=== PATIENT | female | born 1995 | race Caucasian/White ===

== ENCOUNTER 2016-09-10 16:37 | Emergency (ER) | payer OTHER, MEDICAID ==
[~2016-09-10] VITALS: Ht 185.4 cm; Wt 106.6 kg
[~2016-09-10 16:37] MED LIST: DOCU100C37 PO; HYDR-3812 PO; IBUP-1773 PO; PNV91TAB3 PO
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
[2016-09-10 19:31] VITALS: BP 0/0
== END 2016-09-10 19:31 | disposition home or self-care (01) ==
LOC: EDUNIT# 16:37 → ER 16:40
DX: S16.1XXA Strain of muscle, fascia and tendon at neck level, initial encounter (principal); S39.012A Strain of muscle, fascia and tendon of lower back, initial encounter; F17.210 Nicotine dependence, cigarettes, uncomplicated; V48.6XXA Car passenger injured in noncollision transport accident in traffic accident, initial encounter; Y92.410 Unspecified street and highway as the place of occurrence of the external cause; Y99.8 Other external cause status
CPT/HCPCS: 70450; 72072; 72100; 72125; 84703

== ENCOUNTER → 2016-10-03 | Outpatient (CLI) | payer MEDICAID ==
--- OUTSIDE RECORDS SUMMARY | 2016-10-03 16:21 | XMS REPORT | Continuity of Care Document ---
Author Author [facility] Organization [facility] Address Unknown Phone Unavailable Care Team Providers Care Foot Specialist Name Role Phone NO, LOCAL PHYSICIAN PCP Unavailable Insurance Providers Payer Name Policy Number [facility]scriber Name [facility] [id number] Svetlana Ellis 18 Self / Same As Patient Advance Directives Directive Response Recorded Date/Time Advance Directives No 09/10/16 5:12pm Health Care Power of Air Twist Operator No 09/10/16 5:12pm Organ Donor Yes 09/10/16 5:12pm Resuscitation Status Full Code 09/10/16 5:12pm Chief Complaint and Reason for Visit Chief Complaint Back Problems Reason for Visit Muscle strain Problems Active Problems Medical Problem Onset Date Status Abdominal pain Unknown Acute Muscle strain Unknown Acute Unknown Acute Medications Current Home Medications Medication Dose Units Route Directions Days/Qty Instructions Start Date Pnv95/Ferrous Fumarate/Fa 1 Each 1 Each Oral Daily 11/09/15 Ibuprofen 600 Mg 600 Mg Oral Every 6 Hours 60 11/11/15 Hydrocodone/Acetaminophen 1 Each 1-2 Tab Oral Every 4HRS as needed for Pain 50 11/11/15 Docusate Sodium 100 Mg 100 Mg Oral Twice A Day as needed for Constipation 40 11/11/15 Social History Social History Problem Response Recorded Date/Time Alcohol Use Denies Use 11/09/2015 11:28am Recreational Drug Use No 11/09/2015 11:28am Recent Foreign Travel No 09/10/2016 5:12pm Recent Infectious Disease Exposure No 09/10/2016 5:12pm Hospitalization with Isolation Denies 09/10/2016 5:12pm Sexually Transmitted Disease No 09/10/2016 5:12pm Smoking Status Current Everyday Smoker 09/10/2016 5:12pm Do you dip or chew tobacco? No 11/09/2015 12:06pm Type Used Cigarettes 09/10/2016 5:12pm Recent Hopitalizations No 09/10/2016 5:12pm Sexually Transmitted Disease No 09/10/2016 5:12pm Hospitalization with Isolation Denies 09/10/2016 5:12pm Query Response Start Date Stop Date Smoking Status Current Everyday Smoker 05/11/2015 Hospital Discharge Instructions No hospital discharge instructions. Plan of Care Discharge Date 09/10/16 7:31pm Disposition 01 HOME, SELF-CARE Condition at Discharge Stable Instructions/Education Provided Muscle Strain (DC) Prescriptions See Medication Section Referrals NO,LOCAL PHYSICIAN - Primary Care Physician Additional Instructions/Education 1. Return to ER for any concerns 2. Tylenol and Motrin and muscle relaxers directed 3. All discharge instructions reviewed with patient and/or family. Voiced understanding. Functional Status No functional status results. Allergies, Adverse Reactions, Alerts No known allergies. Immunizations No immunization records. Vital Signs Acute Vital Signs Vital Response Date/Time Temperature (Fahrenheit) 95.5 degrees F (97.6 - 99.5) 09/10/2016 5:12pm Temperature (Calculated Celsius) 35.17341 degrees C (36.4 - 37.5) 09/10/2016 5:12pm Temperature Source Temporal 09/10/2016 5:12pm Pulse Rate (adult) 99 bpm (60 - 90) 09/10/2016 5:12pm Respiratory Rate 20 bpm (12 - 24) 09/10/2016 5:12pm O2 Sat by Pulse Oximetry 99 % (88 - 100) 09/10/2016 5:12pm Blood Pressure 129/89 mm Hg 09/10/2016 5:12pm Blood Pressure Mean 102 mm Hg 09/10/2016 5:12pm Pain Numeric Pain Scale 8 09/10/2016 5:12pm Height (Feet) 6 feet 09/10/2016 5:12pm Height (Inches) 1 inches 09/10/2016 5:12pm Height (Calculated Centimeters) 185.869189 cm 09/10/2016 5:12pm Weight (Pounds) 235 pounds 09/10/2016 5:12pm Weight (Calculated Kilograms) 106.086108 kilograms 09/10/2016 5:12pm Capillary Refill Capillary Refill Less Than 3 Seconds 09/10/2016 5:12pm Height 6 ft 1 in Weight 235 lb Body Mass Index 31.0 kg/m^2 Results No known relevant diagnostic tests, laboratory data and/or discharge summary. Procedures No known history of procedures. Encounters Encounter Location Arrival/Admit Date Discharge/Depart Date Attending Provider Departed Emergency Room [facility] 09/10/16 4:40pm 09/10 7:31pm HERI AGUSTIN APRN Recent Diagnosis
[2016-10-03 17:46] LABS: THYROID STIMULATING HORMONE 1.36 UIU/ML (0.35-4.94)
== END ==
LOC: LAB 16:17
PROVIDERS: ATTEND Family Medicine
DX: R53.83 Other fatigue (principal)
CPT/HCPCS: 36415; 84439; 84443

== ENCOUNTER 2016-10-27 19:37 | Outpatient (CLI) | payer MEDICAID ==
--- OUTSIDE RECORDS SUMMARY | 2016-10-27 19:39 | XMS REPORT | Continuity of Care Document ---
Author Author [facility] Organization [facility] Address Unknown Phone Unavailable Care Team Providers Care Wheel Roller Name Role Phone NO, LOCAL PHYSICIAN PCP Unavailable Insurance Providers Payer Name Policy Number Subscriber Name [facility] [id number] Svetlana Ellis 18 Self / Same As Patient Advance Directives Directive Response Recorded Date/Time Advance Directives No 09/10/16 5:12pm Health Care Power of Director Power No 09/10/16 5:12pm Organ Donor Yes 09/10/16 [...] - 99.5) 09/10/2016 5:12pm Temperature (Calculated Celsius) 35.70795 degrees C (36.4 - 37.5) 09/10/2016 5:12pm [...] 1 inches 09/10/2016 5:12pm Height (Calculated Centimeters) 185.687994 cm 09/10/2016 5:12pm Weight (Pounds) 235 pounds 09/10/2016 5:12pm Weight (Calculated Kilograms) 106.330808 kilograms 09/10/2016 5:12pm Capillary Refill Capillary Refill Less Than 3 Seconds 09/10/2016 5:12pm Height 6 ft 1 in Weight 235 lb Body Mass Index 31.0 kg/m^2 Results No known relevant diagnostic tests, laboratory data and/or discharge summary. Procedures No known history of procedures. Encounters Encounter Location Arrival/Admit Date Discharge/Depart Date Attending Provider Departed Emergency Room [facility] 09/10/16 4:40pm 09/10 7:31pm HERI AGUSTIN APRN Recent Diagnosis
== END 2016-10-28 06:50 | disposition home or self-care (01) ==
LOC: SLEEP 19:37
PROVIDERS: ATTEND Family Medicine
DX: G47.33 Obstructive sleep apnea (adult) (pediatric) (principal); I10 Essential (primary) hypertension
CPT/HCPCS: 95810

== ENCOUNTER 2016-12-13 08:35 | Outpatient (RCR) | payer MEDICAID | END 2017-01-03 08:54 | disposition home or self-care (01) | PROVIDERS: ATTEND Family Medicine | DX: M54.5 Low back pain (principal) ==

== ENCOUNTER 2017-08-02 02:39 | Observation (INO) | payer BC, MEDICAID ==
[~2017-08-02] VITALS: Ht 182.9 cm; Wt 123.8 kg
[2017-08-02] MEDS ORDERED: NS IV 1000 ML 1,000 ML IV STA (03:05)
[2017-08-02 03:13] LABS: BASOPHILS % (AUTO) 0 % (0-10); EOSINOPHILS % (AUTO) 0 % (0-10); LYMPHOCYTES # (AUTO) 1.8 X 10^3 (1.0-4.0); LYMPHOCYTES % (AUTO) 12 % (12-44); MEAN CORPUSCULAR HEMOGLOBIN 29 PG (25-34); MEAN CORPUSCULAR HGB CONC 34 G/DL (32-36); MEAN CORPUSCULAR VOLUME 85 FL (80-99); MEAN PLATELET VOLUME 11.2 FL (7.4-10.4); MONOCYTES # (AUTO) 1.2 X 10^3 (0.0-1.0); MONOCYTES % (AUTO) 8 % (0-12); NEUTROPHILS # (AUTO) 12.6 X 10^3 (1.8-7.8); NEUTROPHILS % (AUTO) 80 % (42-75); PLATELET COUNT 227 10^3/uL (130-400); RED BLOOD COUNT 4.98 10^6/uL (4.35-5.85); RED CELL DISTRIBUTION WIDTH 13.1 % (10.0-14.5); WHITE BLOOD COUNT 15.7 10^3/uL (4.3-11.0)
[2017-08-02 03:15] LABS: BILIRUBIN,URINE NEGATIVE (NEGATIVE); KETONES,URINE 3+ (NEGATIVE); LEUKOCYTE ESTERASE ,URINE 2+ (NEGATIVE); NITRITE,URINE NEGATIVE (NEGATIVE); PH,URINE 6 (5-9); PROTEIN,URINE 1+ (NEGATIVE); UROBILINOGEN,URINE 1 MG/DL (NORMAL)
[2017-08-02] MEDS ORDERED: ONDANSETRON 4 MG/2 ML (SDV) Z0FRAN IVP ONE ×2 (03:15→05:30)
--- NOTE | 2017-08-02 03:28 | ED GI ---
General Chief Complaint: Abdominal/GI Problems Stated Complaint: DIARRHEA,VOMITING,NAUSEA Nursing Triage Note: PT STATES SHE STARTED TO FEEL NASEOUS AND BEGAN VOMITING AND HAVIND DIARRHEA AROUND 2100 THIS EVENING. ALSO C/O ABD CRAMPING. PT IS ALSO 14 WKS . Sepsis Screen: No Definite Risk Source of Information: Patient Exam Limitations: No Limitations History of Present Illness Time Seen By Provider: 03:20 Initial Comments Here with report of nausea, vomiting, diarrhea and abdominal cramping that started about 9 p.m. tonight. 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 After going home she had several more episodes of nonbloody diarrhea and vomiting and then had the abdominal cramping. She is concerned about dehydration and about the cramping. Denies vaginal bleeding. Timing/Duration: 4-6 Hours Severity/Quality: Moderate Location: Generalized Abdomen Radiation: No Radiation Activities at Onset: None Modifying Factors: Improves With Defecating, Worsens With Eating, Improves With Vomiting Associated Symptoms: Back Pain, No Fever/Chills, Fatigue, Nausea/Vomiting, No Shortness of Air, No Weakness Allergies and Home Medications Allergies Coded Allergies: No Known Drug Allergies (Unverified , 05/22/15) Home Medications Docusate Sodium 100 Mg Capsule, 100 MG PO BID PRN for CONSTIPATION, #40 Prescribed by: ALON BANKS on 11/11/15 0944 Hydrocodone/Acetaminophen 1 Each Tablet, 1-2 TAB PO Q4H PRN for PAIN, #50 Prescribed by: ALON BANKS on 11/11/15 0944 Ibuprofen 600 Mg Tablet, 600 MG PO Q6H, #60 Prescribed by: ALON BANKS on 11/11/15 0944 Ondansetron 4 Mg Tab.rapdis, 4 MG PO Q6H PRN for NAUSEA/VOMITING, #8 Ref 0 Prescribed by: BINDU SHAW on 08/02/17 0449 Pnv95/Ferrous Fumarate/FA 1 Each Tablet, 1 EACH PO DAILY, (Reported) Review of Systems Constitutional: see HPI, No chills, No fever EENTM: No Symptoms Reported Respiratory: No Symptoms Reported Cardiovascular: No Symptoms Reported Gastrointestinal: See HPI, Abdominal Pain, Diarrhea, Nausea, Vomiting Genitourinary: No Symptoms Reported Musculoskeletal: no symptoms reported Skin: no symptoms reported Psychiatric/Neurological: No Symptoms Reported Past Flmjclm-Egqcye-Dpijgu Hx Patient Social History Alcohol Use: Denies Use Recreational Drug Use: No Smoking Status: Former Smoker Type Used: Cigarettes Recent Foreign Travel: No Contact w/Someone Who Travel: No Recent Infectious Disease Expo: No Recent Hopitalizations: No Immunizations Up To Date Tetanus Booster (TDap): Less than 5yrs Date of Influenza Vaccine: Jun 19, 2015 Surgeries History of Surgeries: Yes Surgeries: Section Respiratory History of Respiratory Disorde: No Cardiovascular History of Cardiac Disorders: No Neurological History of Neurological Disord: No Reproductive System Hx : 2 Hx Para: 1 Hx Reproductive Disorders: No Sexually Transmitted Disease: No Genitourinary History of Genitourinary Disor: Yes Genitourinary Disorders: Kidney Infection, Kidney Stones Reviewed Nursing Assessment Reviewed/Agree w Nursing PMH: Yes Family Medical History Significant Family History: No Pertinent Family Hx Family Medial History: Arthritis 19 MOTHER grandparents Cardiovascular disease grandparents Hypertension grandparents Kidney disease 19 FATHER Myocardial infarction grandparents Respiratory disorder grandparents (lung ca) Physical Exam Vital Signs VS - Last 72 Hours, by Label 08/02/17 02:55 Temp 97.5 Pulse 119 Resp 16 B/P (MAP) 135/81 (99) Capillary Refill : Less Than 3 Seconds General Appearance: WD/WN, no apparent distress HEENT: PERRL/EOMI, pharynx normal Neck: full range of motion, supple Respiratory: lungs clear, normal breath sounds Cardiovascular: regular rate, rhythm, no murmur Gastrointestinal: normal bowel sounds, non tender, soft Extremities: non-tender, normal inspection Back: normal inspection, no CVA tenderness, no vertebral tenderness Neurologic/Psychiatric: alert, oriented x 3 Skin: normal color, warm/dry Progress/Results/Core Measures Results/Orders Lab Results Laboratory Tests Test 08/02/17 03:00 08/02/17 03:07 Range/Units White Blood Count 15.7 H 4.3-11.0 10^3/uL Red Blood Count 4.98 4.35-5.85 10^6/uL Hemoglobin 14.5 11.5-16.0 G/DL Hematocrit 42 35-52 % Mean Corpuscular Volume 85 80-99 FL Mean Corpuscular Hemoglobin 29 25-34 PG Mean Corpuscular Hemoglobin Concent 34 32-36 G/DL Red Cell Distribution Width 13.1 10.0-14.5 % Platelet Count 227 130-400 10^3/uL Mean Platelet Volume 11.2 H 7.4-10.4 FL Neutrophils (%) (Auto) 80 H 42-75 % Lymphocytes (%) (Auto) 12 12-44 % Monocytes (%) (Auto) 8 0-12 % Eosinophils (%) (Auto) 0 0-10 % Basophils (%) (Auto) 0 0-10 % Neutrophils # (Auto) 12.6 H 1.8-7.8 X 10^3 Lymphocytes # (Auto) 1.8 1.0-4.0 X 10^3 Monocytes # (Auto) 1.2 H 0.0-1.0 X 10^3 Eosinophils # (Auto) 0.0 0.0-0.3 10^3/uL Basophils # (Auto) 0.0 0.0-0.1 10^3/uL Neutrophils % (Manual) 84 % Lymphocytes % (Manual) 7 % Monocytes % (Manual) 6 % Band Neutrophils 3 % Blood Morphology Comment NORMAL Sodium Level 136 135-145 MMOL/L Potassium Level 3.9 3.6-5.0 MMOL/L Chloride Level 106 98-107 MMOL/L Carbon Dioxide Level 18 L 21-32 MMOL/L Anion Gap 12 5-14 MMOL/L Blood Urea Nitrogen 8 7-18 MG/DL Creatinine 0.64 0.60-1.30 MG/DL Estimat Glomerular Filtration Rate > 60 BUN/Creatinine Ratio 13 Glucose Level 106 H 70-105 MG/DL Calcium Level 9.3 8.5-10.1 MG/DL Total Bilirubin 0.5 0.1-1.0 MG/DL Aspartate Amino Transf (AST/SGOT) 12 5-34 U/L Alanine Aminotransferase (ALT/SGPT) 17 0-55 U/L Alkaline Phosphatase 98 40-136 U/L Total Protein 7.1 6.4-8.2 GM/DL Albumin 3.7 3.2-4.5 GM/DL Urine Color MIRNA H Urine Clarity SLIGHTLY CLOUDY Urine pH 6 5-9 Urine Specific [place] 1.025 H 1.016-1.022 Urine Protein 1+ H NEGATIVE Urine Glucose (UA) NEGATIVE NEGATIVE Urine Ketones 3+ H NEGATIVE Urine Nitrite NEGATIVE NEGATIVE Urine Bilirubin NEGATIVE NEGATIVE Urine Urobilinogen 1 NORMAL MG/DL Urine Leukocyte Esterase 2+ H NEGATIVE Urine RBC (Auto) 2+ H NEGATIVE Urine RBC 2-5 H /HPF Urine WBC 0-2 /HPF Urine Squamous Epithelial Cells 25-50 H /HPF Urine Crystals NONE /LPF Urine Bacteria TRACE /HPF Urine Casts NONE /LPF Urine Mucus MODERATE H /LPF Urine Culture Indicated NO My Orders Orders - BINDU SHAW MD Cbc With Automated Diff (08/02/17 03:05) Comprehensive Metabolic Panel (08/02/17 03:05) Ua Culture If Indicated (08/02/17 03:05) Ondansetron Injection (Zofran Injectio (08/02/17 03:15) Ns Iv 1000 Ml (Sodium Chloride 0.9%) (08/02/17 03:05) Saline Lock/Iv-Start (08/02/17 03:05) Manual Differential (08/02/17 03:00) D5 Ns 1000 Ml Iv Solution (Dextrose 5%/0 (08/02/17 03:53) Acetaminophen Tablet (Tylenol Tablet) (08/02/17 04:44) Rx-Ondansetron Po (Rx-Zofran Po) (08/02/17 04:44) Ondansetron Injection (Zofran Injectio (08/02/17 05:20) Promethazine Injection (Phenergan Injec (08/02/17 05:20) Ondansetron Injection (Zofran Injectio (08/02/17 05:30) Promethazine Injection (Phenergan Injec (08/02/17 05:23) Medications Given in ED Current Medications Medications Dose Ordered Sig/Abdirizak Route Start Time Stop Time Status Last Admin Dose Admin Ondansetron HCl 4 mg ONCE ONCE IVP 08/02/17 03:15 08/02/17 03:16 DC 08/02/17 03:13 4 MG Vital Signs/I&O Vital Sign - Last 12Hours 08/02/17 02:55 Temp 97.5 Pulse 119 Resp 16 B/P (MAP) 135/81 (99) Blood Pressure Mean: 99 Progress Note : Progress Note Seen and evaluated. IV, labs and UA ordered. Normal saline 1 L bolus. Zofran 4 mg IV. I did discuss the case with Dr. Banks and he agrees with the plan. D5NS 1 liter bolus ordered after UA was positive for ketones. 0440: Bedside ultrasound shows positive movement with heart tones of approximately 150 bpm. Approximately 14-3/7 by femur length. Patient does have some back pain. Tylenol 1 g by mouth ordered. Monitor patient. 0530: Patient failed by mouth challenge and is feeling significant nausea and is trying not to vomit. Phenergan 25 mg IV and repeat Zofran done. I did discuss the case with Dr. Banks and he accepts patient for admission, observation status. We will continue hydration. Patient agrees with plan. Departure Communication (Admissions) Time/Spoke to Admitting Phy: 05:25 Impression Impression: Primary Impression: Nausea and vomiting Qualified Codes: R11.2 - Nausea with vomiting, unspecified Additional Impression: Diarrhea Qualified Codes: R19.7 - Diarrhea, unspecified Disposition: ADMITTED INPATIENT Condition: Stable Admissions Decision to Admit Reason: Admit from ER (General) Decision to Admit/Date: Aug 02, 2017 Time/Decision to Admit Time: 05:25 Departure-Patient Inst. Decision time for Depature: 04:46 Referrals: GERARDO COLEMAN MD (PCP/Family) Primary Care Physician Scripts Ondansetron (Ondansetron Odt) 4 Mg Tab.rapdis 4 MG PO Q6H Y for NAUSEA/VOMITING, #8 TAB 0 Refills Prov: BINUD SHAW MD 08/02/17 Work/School Note: Work Release Form Date Seen in the Emergency Department: Aug 02, 2017 Return to Work: Aug 03, 2017 Restrictions: No Restrictions BINDU SHAW MD Aug 02, 2017 03:28
[2017-08-02 03:32] LABS: ALANINE AMINOTRANSFERASE 17 U/L (0-55); ALBUMIN 3.7 GM/DL (3.2-4.5); ANION GAP 12 MMOL/L (5-14); ASPARTATE AMINO TRANSFERASE 12 U/L (5-34); BILIRUBIN,TOTAL 0.5 MG/DL (0.1-1.0); BLOOD UREA NITROGEN 8 MG/DL (7-18); BUN/CREATININE RATIO 13; CALCIUM 9.3 MG/DL (8.5-10.1); CARBON DIOXIDE 18 MMOL/L (21-32); CHLORIDE 106 MMOL/L (98-107); CREATININE SERUM 0.64 MG/DL (0.60-1.30); GFR ESTIMATED > 60; GLUCOSE 106 MG/DL (70-105); POTASSIUM 3.9 MMOL/L (3.6-5.0); SODIUM 136 MMOL/L (135-145); TOTAL PROTEIN 7.1 GM/DL (6.4-8.2)
[2017-08-02 03:39] LABS: SQUAMOUS EPITHELIAL CELL,UR 25-50 /HPF; WBC,URINE 0-2 /HPF
[2017-08-02 03:40] LABS: BAND NEUTROPHILS 3 %; LYMPHOCYTES % (MANUAL) 7 %; NEUTROPHILS % (MANUAL) 84 %
[2017-08-02] MEDS ORDERED: D5 NS 1000 ML IV SOLUTION 1,000 ML IV STA (03:53)
[2017-08-02] MEDS ORDERED: RX-ONDANSETRON 4 MG ODT (ZOFRAN) PPK #4 PO STA (04:44)
[2017-08-02] MEDS ORDERED: ACETAMINOPHEN 500 MG TAB (TYLENOL) PO STA (04:44)
[2017-08-02] MEDS ORDERED: ONDA4TAB11 PO (04:49)
[2017-08-02] MEDS ORDERED: PROMETHAZINE INJ 25 MG/ML (PHENERGAN) AMP IVP STA (05:20)
[2017-08-02] MEDS ORDERED: ONDANSETRON 4 MG/2 ML (SDV) Z0FRAN ONE (05:20)
[2017-08-02] MEDS ORDERED: PROMETHAZINE INJ 25 MG/ML (PHENERGAN) AMP ONE (05:23)
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
[2017-08-02 06:11] VITALS: BP 120/60
[2017-08-02] MEDS ORDERED: PROMETHAZINE INJ 25 MG/ML (PHENERGAN) AMP IVP PRN (06:15)
[2017-08-02] MEDS ORDERED: D5 NS 1000 ML IV SOLUTION 1,000 ML IV SCH (06:15)
[2017-08-02] MEDS ORDERED: ONDANSETRON 4 MG/2 ML (SDV) Z0FRAN IVP PRN (06:15)
--- NOTE | 2017-08-02 09:41 | History & Physical-OB ---
OB - Chief Complaint & HPI Date/Time Date of Admission: Date of Admission: Aug 02, 2017 at 5:30 am Time Seen by Provider: 08:05 Chief Complaint/History Hx : 2 Hx Para: 1 Expected Date of Delivery: Jan 26, 2018 Gestational Age in Weeks: 14 Gestational Age in Days: 5 Other reason for admission: Patient admitted from ER last night due to uncontrolled nausea/vomitting. Started yesterday, patient did not get relief with initial IVF bolus and antiemetics and so was admitted for ongoing fluid hydration and resolution- improvement of symptoms. This AM patient is very tired, and still feeling sick , but no cramping or bleeding. Reports diarrhea that started yesterday as well. History of Labs O neg antibody neg RI RPR NR HBsAg NR HIV NR GC neg Laboratory Tests Test 08/02/17 03:00 08/02/17 03:07 Range/Units White Blood Count 15.7 H 4.3-11.0 10^3/uL Red Blood Count 4.98 4.35-5.85 10^6/uL Hemoglobin 14.5 11.5-16.0 G/DL Hematocrit 42 35-52 % Mean Corpuscular Volume 85 80-99 FL Mean Corpuscular Hemoglobin 29 25-34 PG Mean Corpuscular Hemoglobin Concent 34 32-36 G/DL Red Cell Distribution Width 13.1 10.0-14.5 % Platelet Count 227 130-400 10^3/uL Mean Platelet Volume 11.2 H 7.4-10.4 FL Neutrophils (%) (Auto) 80 H 42-75 % Lymphocytes (%) (Auto) 12 12-44 % Monocytes (%) (Auto) 8 0-12 % Eosinophils (%) (Auto) 0 0-10 % Basophils (%) (Auto) 0 0-10 % Neutrophils # (Auto) 12.6 H 1.8-7.8 X 10^3 Lymphocytes # (Auto) 1.8 1.0-4.0 X 10^3 Monocytes # (Auto) 1.2 H 0.0-1.0 X 10^3 Eosinophils # (Auto) 0.0 0.0-0.3 10^3/uL Basophils # (Auto) 0.0 0.0-0.1 10^3/uL Neutrophils % (Manual) 84 % Lymphocytes % (Manual) 7 % Monocytes % (Manual) 6 % Band Neutrophils 3 % Blood Morphology Comment NORMAL Sodium Level 136 135-145 MMOL/L Potassium Level 3.9 3.6-5.0 MMOL/L Chloride Level 106 98-107 MMOL/L Carbon Dioxide Level 18 L 21-32 MMOL/L Anion Gap 12 5-14 MMOL/L Blood Urea Nitrogen 8 7-18 MG/DL Creatinine 0.64 0.60-1.30 MG/DL Estimat Glomerular Filtration Rate > 60 BUN/Creatinine Ratio 13 Glucose Level 106 H 70-105 MG/DL Calcium Level 9.3 8.5-10.1 MG/DL Total Bilirubin 0.5 0.1-1.0 MG/DL Aspartate Amino Transf (AST/SGOT) 12 5-34 U/L Alanine Aminotransferase (ALT/SGPT) 17 0-55 U/L Alkaline Phosphatase 98 40-136 U/L Total Protein 7.1 6.4-8.2 GM/DL Albumin 3.7 3.2-4.5 GM/DL Urine Color MIRNA H Urine Clarity SLIGHTLY CLOUDY Urine pH 6 5-9 Urine Specific Ensign 1.025 H 1.016-1.022 Urine Protein 1+ H NEGATIVE Urine Glucose (UA) NEGATIVE NEGATIVE Urine Ketones 3+ H NEGATIVE Urine Nitrite NEGATIVE NEGATIVE Urine Bilirubin NEGATIVE NEGATIVE Urine Urobilinogen 1 NORMAL MG/DL Urine Leukocyte Esterase 2+ H NEGATIVE Urine RBC (Auto) 2+ H NEGATIVE Urine RBC 2-5 H /HPF Urine WBC 0-2 /HPF Urine Squamous Epithelial Cells 25-50 H /HPF Urine Crystals NONE /LPF Urine Bacteria TRACE /HPF Urine Casts NONE /LPF Urine Mucus MODERATE H /LPF Urine Culture Indicated NO Allergies and Home Medications Allergies Coded Allergies: No Known Drug Allergies (Unverified , 05/22/15) Home Medications Docusate Sodium 100 Mg Capsule, 100 MG PO BID PRN for CONSTIPATION, #40 Prescribed by: ALON BANKS on 11/11/15 0944 Hydrocodone/Acetaminophen 1 Each Tablet, 1-2 TAB PO Q4H PRN for PAIN, #50 Prescribed by: ALON BANKS on 11/11/15 0944 Ibuprofen 600 Mg Tablet, 600 MG PO Q6H, #60 Prescribed by: ALON BANKS on 11/11/15 0944 Ondansetron 4 Mg Tab.rapdis, 4 MG PO Q6H PRN for NAUSEA/VOMITING, #8 Ref 0 Prescribed by: BINDU SHAW on 08/02/17 0449 Pnv95/Ferrous Fumarate/FA 1 Each Tablet, 1 EACH PO DAILY, (Reported) OB - History Hx of Present Care: Yes Ultrasounds: Other (1st trimester dating US only) Obstetrical Complications: None Medical Complications: None Obstetrical History Hx : 2 Hx Para: 1 Delivery History Hx Blood Disorders: No Patient Past Medical History none Social History/Family History Recent Infectious Disease Expo: No Sexually Transmitted Disease: No Alcohol Use: Denies Use Recreational Drug Use: No Immunizations Tetanus Booster (TDap): Less than 5yrs Date of Influenza Vaccine: Jun 19, 2017 OB - Admission Exam Physical Exam Vitals: Vital Signs 08/02/17 08/02/17 05:54 06:11 Temp 97.9 Pulse 88 Resp 18 B/P (MAP) 120/60 (80) Pulse Ox 99 HEENT: NCAT Heart: Rhythm Normal Lungs: Clear Heart Rate: 150's Labs Laboratory Tests Test 08/02/17 03:00 08/02/17 03:07 Range/Units White Blood Count 15.7 H 4.3-11.0 10^3/uL Red Blood Count 4.98 4.35-5.85 10^6/uL Hemoglobin 14.5 11.5-16.0 G/DL Hematocrit 42 35-52 % Mean Corpuscular Volume 85 80-99 FL Mean Corpuscular Hemoglobin 29 25-34 PG Mean Corpuscular Hemoglobin Concent 34 32-36 G/DL Red Cell Distribution Width 13.1 10.0-14.5 % Platelet Count 227 130-400 10^3/uL Mean Platelet Volume 11.2 H 7.4-10.4 FL Neutrophils (%) (Auto) 80 H 42-75 % Lymphocytes (%) (Auto) 12 12-44 % Monocytes (%) (Auto) 8 0-12 % Eosinophils (%) (Auto) 0 0-10 % Basophils (%) (Auto) 0 0-10 % Neutrophils # (Auto) 12.6 H 1.8-7.8 X 10^3 Lymphocytes # (Auto) 1.8 1.0-4.0 X 10^3 Monocytes # (Auto) 1.2 H 0.0-1.0 X 10^3 Eosinophils # (Auto) 0.0 0.0-0.3 10^3/uL Basophils # (Auto) 0.0 0.0-0.1 10^3/uL Neutrophils % (Manual) 84 % Lymphocytes % (Manual) 7 % Monocytes % (Manual) 6 % Band Neutrophils 3 % Blood Morphology Comment NORMAL Sodium Level 136 135-145 MMOL/L Potassium Level 3.9 3.6-5.0 MMOL/L Chloride Level 106 98-107 MMOL/L Carbon Dioxide Level 18 L 21-32 MMOL/L Anion Gap 12 5-14 MMOL/L Blood Urea Nitrogen 8 7-18 MG/DL Creatinine 0.64 0.60-1.30 MG/DL Estimat Glomerular Filtration Rate > 60 BUN/Creatinine Ratio 13 Glucose Level 106 H 70-105 MG/DL Calcium Level 9.3 8.5-10.1 MG/DL Total Bilirubin 0.5 0.1-1.0 MG/DL Aspartate Amino Transf (AST/SGOT) 12 5-34 U/L Alanine Aminotransferase (ALT/SGPT) 17 0-55 U/L Alkaline Phosphatase 98 40-136 U/L Total Protein 7.1 6.4-8.2 GM/DL Albumin 3.7 3.2-4.5 GM/DL Urine Color MIRNA H Urine Clarity SLIGHTLY CLOUDY Urine pH 6 5-9 Urine Specific Ensign 1.025 H 1.016-1.022 Urine Protein 1+ H NEGATIVE Urine Glucose (UA) NEGATIVE NEGATIVE Urine Ketones 3+ H NEGATIVE Urine Nitrite NEGATIVE NEGATIVE Urine Bilirubin NEGATIVE NEGATIVE Urine Urobilinogen 1 NORMAL MG/DL Urine Leukocyte Esterase 2+ H NEGATIVE Urine RBC (Auto) 2+ H NEGATIVE Urine RBC 2-5 H /HPF Urine WBC 0-2 /HPF Urine Squamous Epithelial Cells 25-50 H /HPF Urine Crystals NONE /LPF Urine Bacteria TRACE /HPF Urine Casts NONE /LPF Urine Mucus MODERATE H /LPF Urine Culture Indicated NO OB - Assessment/Plan/Diagnosis Plan Other Plan Continue IVF hydration and control of nausea, will consider dc later today pending patient tolerates oral hydration and bland diet. Discharge Diagnosis Diagnosis: 22 yo @ 14.5 weeks gestation Acute gastroenteritis Rh ALON Javier DO Aug 02, 2017 9:41 am
[2017-08-02 10:35] VITALS: BP 93/54
== END 2017-08-02 13:54 | disposition home or self-care (01) ==
LOC: EDUNIT# 02:39 → ER 02:42 → LDRP 05:30
PROVIDERS: ADMIT Obstetrics & Gynecology; ATTEND Obstetrics & Gynecology
DX: O99.89 Other specified diseases and conditions complicating pregnancy, childbirth and the puerperium (principal); K52.9 Noninfective gastroenteritis and colitis, unspecified; Z3A.14 14 weeks gestation of pregnancy
CPT/HCPCS: 36415; 80053; 81000; 85007; 85027; 96361; 96374; 96375; G0378

== ENCOUNTER → 2017-09-10 | Outpatient (CLI) | payer BC, MEDICAID ==
[~2017-09-10] MED LIST changes: +ACHD5005 PO; -HYDR-3812 PO; +ONDA4TAB11 PO
--- NOTE | 2017-09-10 11:39 | Diagnostic Imaging Report ---
INDICATION: survey. TECHNIQUE: Multiple real-time grayscale images were obtained over the gravid uterus. COMPARISON: None. FINDINGS: There is a single live fetus in a transverse presentation with head to the maternal right. The placenta is fundal. The amniotic fluid volume is normal. heart rate is recorded at 140 beats per minute. kidneys, bladder, and stomach are visualized. brain is unremarkable. Four-chamber heart view is not well seen. There is a three-vessel cord. spine and cord insertion are unremarkable. Biometrical measurements are as follows: Biparietal 4.9 cm, age 20 weeks 6 days. Head circumference 17.8 cm, age 20 weeks 2 days. Abdominal circumference 15.0 cm, age 20 weeks 2 days. Femur length 3.6 cm, age 21 weeks 4 days. Sonographic estimate age: 20 weeks 6 days. Sonographic estimated date of delivery: 01/22/18. Estimated Weight: 377 gm (+/- 55 gm). LMP percentile: 73%. heart rate: 140 beats per minute. number: 1 of 1. IMPRESSION: Single live IUP at approximately 21 weeks gestational age with an estimated date of confinement sonographically of 01/22/2018. Dictated by: Dictated on workstation # [id number]
== END ==
LOC: RAD 09:36
PROVIDERS: ATTEND Obstetrics & Gynecology
DX: Z36.89 Encounter for other specified antenatal screening (principal); Z3A.20 20 weeks gestation of pregnancy
CPT/HCPCS: 76805

== ENCOUNTER 2017-11-01 20:03 | Emergency (ER) | payer BC, MEDICAID ==
[~2017-11-01] VITALS: Ht 182.9 cm; Wt 125.2 kg
--- NOTE | 2017-11-01 21:13 | ED Cough/URI ---
General Chief Complaint: Cough/Cold/Flu Symptoms Stated Complaint: 28 WKS PREG/PRODUCTIVE COUGH Nursing Triage Note: Patient amb to ED 4, reports 5 week hx of cough/cold sx. Pt has seen her OB Dr Banks and is only advised of Mucinex and Robitussin which brings no relief. Pt has discomfort in ribs from frequent cough. Source: patient History of Present Illness Date Seen by Provider: Nov 01, 2017 Time Seen by Provider: 20:45 Initial Comments PT ARRIVES VIA POV C/O PRODUCTIVE COUGH X 5 WEEKS--YELLOW/GREEN SPUTUM C/O CHEST TIGHTNESS WITH COUGHING, AND RIBS NOW SORE FROM COUGHING NO FEVER NO SHORTNESS OF BREATH NO SWELLING IN LEGS/ FEET OR PAIN IN CALVES PT IS [address] BANKS'S OFFICE 2 WEEKS AGO, AND WAS TOLD TO TAKE MUCINEX. HAD ROUTINE OB VISIT LAST WEEK AND MENTIONED THIS PROBLEM, BUT NO CHANGE IN TREATMENT RECOMMENDATIONS AND DOES NOT FEEL LIKE ISSUE WAS ADDRESSED. NO PROBLEMS WITH NO HISTORY OF RESPIRATORY PROBLEMS BOTH PARENTS HAVE BEEN ILL WITH SAME AND BOTH DX WITH BRONCHITIS, AND FATHER'S PROGRESSED TO PNEUMONIA SYMPTOMS NO DIFFERENT TONIGHT.. PCP: HAS BEEN TO DR. Marv COLEMAN EDUCATIONAL DIRECTOR: DR. BANKS Allergies and Home Medications Allergies Coded Allergies: No Known Drug Allergies (Unverified , 05/22/15) Home Medications Azithromycin 500 Mg Tablet, 500 MG PO DAILY FOR INFECTION Prescribed by: KAREN GRESHAM on 11/01/172213 Cefdinir 300 Mg Capsule, 300 MG PO BID Prescribed by: KAREN GRESHAM on 11/01/172213 Guaifenesin/Codeine Phosphate 5 Ml Liquid, 5 ML PO Q4H Prescribed by: KAREN GRESHAM on 11/01/172213 Methylprednisolone 4 Mg Tab.ds.pk, 4 MG PO UD Prescribed by: KAREN GRESHAM on 11/01/172213 Pnv95/Ferrous Fumarate/FA 1 Each Tablet, 1 EACH PO DAILY, (Reported) Patient Home Medication List Home Medication List Reviewed: Yes Constitutional: no symptoms reported, No chills, No diaphoresis, No fever EENTM: no symptoms reported Respiratory: see HPI, cough, No short of breath, No wheezing Cardiovascular: see HPI, chest pain Gastrointestinal: no symptoms reported Genitourinary: no symptoms reported : Yes Musculoskeletal: no symptoms reported Skin: no symptoms reported Psychiatric/Neurological: No Symptoms Reported Hematologic/Lymphatic: No Symptoms Reported Past Ttinlws-Gaikdb-Bcuqif Hx Patient Social History Alcohol Use: Denies Use Recreational Drug Use: No Type Used: Cigarettes 2nd Hand Smoke Exposure: No Recent Foreign Travel: No Contact w/Someone Who Travel: No Recent Infectious Disease Expo: No Recent Hopitalizations: No Immunizations Up To Date Tetanus Booster (TDap): Less than 5yrs PED Vaccines UTD: Yes Date of Influenza Vaccine: May 19, 2017 Seasonal Allergies Seasonal Allergies: No Surgeries History of Surgeries: Yes Surgeries: Section Respiratory History of Respiratory Disorde: No Cardiovascular History of Cardiac Disorders: No Neurological History of Neurological Disord: No Reproductive System : Yes (EDC 01/26/18) Hx Reproductive Disorders: No Sexually Transmitted Disease: No Female Reproductive Disorders: Denies Genitourinary History of Genitourinary Disor: Yes Genitourinary Disorders: Kidney Infection, Kidney Stones Gastrointestinal History of Gastrointestinal Di: No Musculoskeletal History of Musculoskeletal Dis: No Endocrine History of Endocrine Disorders: No HEENT History of HEENT Disorders: No Cancer History of Cancer: No Psychosocial History of Psychiatric Problem: No Integumentary History of Skin or Integumenta: No Blood Transfusions History of Blood Disorders: No Family Medical History Significant Family History: No Pertinent Family Hx Family Medial History: Arthritis 19 MOTHER grandparents Cardiovascular disease grandparents Hypertension grandparents Kidney disease 19 FATHER Myocardial infarction grandparents Respiratory disorder grandparents (lung ca) Physical Exam Vital Signs Vital Signs - First Documented 11/01/17 20:19 Temp 98.7 Pulse 104 Resp 20 B/P (MAP) 140/92 (108) Pulse Ox 98 O2 Delivery Room Air Capillary Refill : Less Than 3 Seconds General Appearance: WD/WN, no apparent distress HEENT: PERRL/EOMI, normal ENT inspection, TMs normal, pharynx normal Neck: non-tender, full range of motion, supple, normal inspection Respiratory: no respiratory distress, no accessory muscle use, rales, rhonchi, wheezing, other (DIFFUSE EXPIRATORY WHEEZING, RALES, RHONCHI BILATERALLY. FREQUENT TIGHT, MOIST COUGH) Cardiovascular: normal peripheral pulses, regular rate, rhythm, no edema, no JVD, no murmur Gastrointestinal: normal bowel sounds, non tender, soft, other (GRAVID UTERUS-- FUNDUS IN EPIGASTRIC AREA. 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, no motor/sensory deficits, alert, normal mood/affect, oriented x 3 Skin: normal color, warm/dry, tattoos/piercings (TATTOOS) Progress/Results/Core Measures Suspected Sepsis Recent Fever Within 48 Hours: No Infection Criteria Present: Suspected New Infection New/Unexplained Altered Menta: No Sepsis Screen: No Definite Risk Sepsis Diagnosis: SIRS Temperature:98.7 Pulse: 104 Respiratory Rate: 20 Blood Pressure 140 /92 Mean: 108 Results/Orders Micro Results Microbiology 11/01/17 Influenza Types A,B Antigen (KEEGAN) - Final, Complete My Orders Orders - KAREN GRESHAM DO Influenza A And B Antigens (11/01/17 20:37) Chest Pa/Lat (2 View) (11/01/17 21:02) Albuterol/Ipra Inhalation Soln (Duoneb I (11/01/17 21:15) Dexamethasone Injection (Decadron Inject (11/01/17 21:15) Rt Request For Service (11/01/17 21:02) Svn Sm Volume Nebulizer Rt-Rfs (11/01/17 21:02) Heart Tones (11/01/17 21:11) Albuterol/Ipra Inhalation Soln (Duoneb I (11/01/17 22:00) Svn Sm Volume Nebulizer Rt-Rfs (11/01/17 21:47) Ceftriaxone Injection (Rocephin Injectio (11/01/17 22:15) Methylprednisolone Sod Succ (Solu-Medrol (11/01/17 22:07) Lidocaine 1% Injection (Xylocaine 1% Inj (11/01/17 22:15) Guaifenesin/Codeine Syrup (Robitussin Ac (11/01/17 22:15) Azithromycin Tablet (Zithromax Tablet) (11/01/17 22:15) Rx-Albuterol Inhaler (Rx-Proair) (11/01/17 22:14) Lidocaine 1% (Xylocaine 1%) (11/01/17 22:17) Medications Given in ED Current Medications Medications Dose Ordered Sig/Abdirizak Route Start Time Stop Time Status Last Admin Dose Admin Albuterol/ Ipratropium 3 ml ONCE ONCE INH 11/01/17 21:15 11/01/17 21:16 DC 11/01/17 21:33 3 ML Albuterol/ Ipratropium 3 ml ONCE ONCE INH 11/01/17 22:00 11/01/17 22:01 DC 11/01/17 21:50 3 ML Ceftriaxone Sodium 1,000 mg ONCE ONCE IM 11/01/17 22:15 11/01/17 22:16 DC 11/01/17 22:29 1,000 MG Dexamethasone Sodium Phosphate 20 mg ONCE ONCE IH 11/01/17 21:15 11/01/17 21:16 DC 11/01/17 21:34 20 MG Guaifenesin/ Codeine Phosphate 5 ml Q4H PRN PO 11/01/17 22:15 11/01/17 22:47 DC 11/01/17 22:31 5 ML Lidocaine HCl 50 ml STK-MED ONCE .ROUTE 11/01/17 22:17 11/01/17 22:20 DC 11/01/17 22:30 50 ML Vital Signs/I&O Vital Sign - Last 12Hours 11/01/17 11/01/17 11/01/17 11/01/17 20:19 20:19 21:34 21:50 Temp 98.7 Pulse 104 Resp 20 B/P (MAP) 140/92 (108) Pulse Ox 98 97 97 O2 Delivery Room Air Room Air Room Air Room Air 11/01/17 11/01/17 11/01/17 11/01/17 22:29 22:29 22:42 22:47 Temp 98.7 98.7 98.7 Pulse 97 Resp 20 B/P (MAP) 138/88 (108) Pulse Ox 97 O2 Delivery Room Air Room Air Capillary Refill : Less Than 3 Seconds Blood Pressure Mean: 108 Progress Note : Progress Note PT HAD MINIMAL /TRANSIENT IMPROVEMENT WITH NEB TREATMENTS. O2 SATS REMAINED IN UPPER 90'S NO DETERIORATION OF PT'S CONDITION DURING ER STAY Diagnostic Imaging Comments CXR--NO ACUTE PROCESS, PER RADIOLOGIST REPORT @ 3567 Reviewed: Reviewed by Me Departure Impression Impression: Primary Impression: Bronchitis Additional Impression: 28 weeks gestation of Disposition: HOME, SELF-CARE Condition: Stable Departure-Patient Inst. Referrals: ALON BANKS DO (PCP/Family) Primary Care Physician Patient Instructions: Acute Bronchitis, Adult (DC), Avoiding Infections in , How to Use Your Metered Dose Inhaler (Adults) Add. Discharge Instructions: LOTS OF CLEAR LIQUIDS TYLENOL NEEDED FOR PAIN OR FEVER FOLLOW UP WITH DR. BANKS IN 3-4 DAYS FOR FURTHER CARE RETURN TO ER IF WORSE All discharge instructions reviewed with patient and/or family. Voiced understanding. Scripts Guaifenesin/Codeine Phosphate (Guaifenesin-Codeine Syrup) 5 Ml Liquid 5 ML PO Q4H for Cough, #120 ML Prov: KAREN GRESHAM DO 11/01/17 Methylprednisolone (Medrol) 4 Mg Tab.ds.pk 4 MG PO UD, #1 PKG Prov: KAREN GRESHAM DO 11/01/17 Azithromycin (Zithromax) 500 Mg Tablet 500 MG PO DAILY, #5 TAB FOR INFECTION Prov: KAREN GRESHAM DO 11/01/17 Cefdinir (Cefdinir) 300 Mg Capsule 300 MG PO BID for FOR INFECTION, #20 CAP Prov: KAREN GRESHAM DO 11/01/17 KAREN GRESHAM DO Nov 01, 2017 21:13
[2017-11-01] MEDS ORDERED: DEXAMETHASONE 4 MG/ML SDV (DECADRON) IH ONE (21:15)
[2017-11-01] MEDS ORDERED: RT-ALBUTEROL/IPRATROPIUM 3 ML (DUONEB) VIAL INH ONE ×2 (21:15→22:00)
--- NOTE | 2017-11-01 22:01 | Diagnostic Imaging Report ---
PATIENT HISTORY: Cough and congestion for 5 weeks. The patient is , the patient was shielded with a wraparound lead apron for the entire exam. TECHNIQUE: Two views of the chest. COMPARISON: None. FINDINGS: The lung volumes are normal. No focal consolidation is seen. No large pleural effusion or pneumothorax is seen. The cardiomediastinal silhouette is normal in size and contour. No acute osseous abnormality is seen. IMPRESSION: No acute pulmonary abnormality seen. Dictated by: Dictated on workstation # [id number]
[2017-11-01] MEDS ORDERED: methylPREDNISolone 125 MG (Solu-MEDROL) VIAL IM STA (22:07)
[2017-11-01] MEDS ORDERED: CEFD300C3 PO (22:14)
[2017-11-01] MEDS ORDERED: METH4TAB PO (22:14)
[2017-11-01] MEDS ORDERED: RX-ALBUTEROL INHALER (PROAIR) 8 GM IH STA (22:14)
[2017-11-01] MEDS ORDERED: GUAI5LIQ PO (22:14)
[2017-11-01] MEDS ORDERED: AZIT500T PO (22:14)
[2017-11-01] MEDS ORDERED: cefTRIAXone 1 GM (ROCEPHIN) VIAL IM ONE (22:15)
[2017-11-01] MEDS ORDERED: AZITHROMYCIN 250 MG TAB (ZITHROMAX) PO SCH (22:15)
[2017-11-01] MEDS ORDERED: guaiFENesin/CODEINE (ROBITUSSIN AC) 10ML UDC PO PRN (22:15)
[2017-11-01] MEDS ORDERED: LIDOCAINE 1% INJ 20 ML (XYLOCAINE) VIAL INJ ONE (22:15)
[2017-11-01] MEDS ORDERED: LIDOCAINE 1% INJ 50 ML (XYLOCAINE) VIAL ONE (22:17)
[2017-11-01 22:47] VITALS: BP 138/88
== END 2017-11-01 22:47 | disposition home or self-care (01) ==
LOC: EDUNIT# 20:03 → ER 20:05
DX: O99.513 Diseases of the respiratory system complicating pregnancy, third trimester (principal); J40 Bronchitis, not specified as acute or chronic; Z87.442 Personal history of urinary calculi; Z87.59 Personal history of other complications of pregnancy, childbirth and the puerperium; Z3A.28 28 weeks gestation of pregnancy
CPT/HCPCS: 71046; 87804; 94640; 94664; 96372

== ENCOUNTER 2017-12-24 10:15 | Outpatient (CLI) | payer BC, MEDICAID ==
[~2017-12-24] VITALS: Ht 182.9 cm; Wt 128.8 kg
[~2017-12-24 10:15] MED LIST changes: +AZIT500T PO; +CEFD300C3 PO; +GUAI5LIQ PO; +METH4TAB PO
[2017-12-24 10:30] VITALS: BP 136/86
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
[2017-12-24] MEDS ORDERED: ONDANSETRON 4 MG/2 ML (SDV) Z0FRAN ONE (10:54)
[2017-12-24] MEDS ORDERED: D5 LR IV SOLUTION 1,000 ML IV ONE ×2 (10:54→11:00)
[2017-12-24 10:58] LABS: BASOPHILS # (AUTO) 0.1 10^3/uL (0.0-0.1); BASOPHILS % (AUTO) 1 % (0-10); EOSINOPHILS % (AUTO) 0 % (0-10); HEMATOCRIT 42 % (35-52); HEMOGLOBIN 14.2 G/DL (11.5-16.0); LYMPHOCYTES # (AUTO) 2.7 X 10^3 (1.0-4.0); LYMPHOCYTES % (AUTO) 25 % (12-44); MEAN CORPUSCULAR HEMOGLOBIN 29 PG (25-34); MEAN CORPUSCULAR HGB CONC 34 G/DL (32-36); MEAN CORPUSCULAR VOLUME 86 FL (80-99); MEAN PLATELET VOLUME 11.3 FL (7.4-10.4); MONOCYTES # (AUTO) 0.9 X 10^3 (0.0-1.0); MONOCYTES % (AUTO) 8 % (0-12); NEUTROPHILS # (AUTO) 7.2 X 10^3 (1.8-7.8); NEUTROPHILS % (AUTO) 66 % (42-75); PLATELET COUNT 245 10^3/uL (130-400); RED BLOOD COUNT 4.83 10^6/uL (4.35-5.85); RED CELL DISTRIBUTION WIDTH 13.9 % (10.0-14.5); WHITE BLOOD COUNT 10.9 10^3/uL (4.3-11.0)
[2017-12-24] MEDS ORDERED: ONDANSETRON 4 MG/2 ML (SDV) Z0FRAN IVP NR (11:00)
[2017-12-24 11:13] LABS: ALANINE AMINOTRANSFERASE 11 U/L (0-55); ALBUMIN 3.6 GM/DL (3.2-4.5); ALKALINE PHOSPHATASE 150 U/L (40-136); BILIRUBIN,TOTAL 0.3 MG/DL (0.1-1.0); BUN/CREATININE RATIO 11; CALCIUM 9.5 MG/DL (8.5-10.1); CARBON DIOXIDE 18 MMOL/L (21-32); CHLORIDE 109 MMOL/L (98-107); CREATININE SERUM 0.76 MG/DL (0.60-1.30); GFR ESTIMATED > 60; GLUCOSE 84 MG/DL (70-105); SODIUM 138 MMOL/L (135-145); TOTAL PROTEIN 7.6 GM/DL (6.4-8.2)
[2017-12-24 11:16] LABS: POTASSIUM 4.7 MMOL/L (3.6-5.0)
[2017-12-24] MEDS ORDERED: ACET325C5 PO (11:54)
[2017-12-24 14:05] VITALS: BP 120/72
[2017-12-24] MEDS ORDERED: ACETAMINOPHEN 500 MG TAB (TYLENOL) PO ONE (14:15)
--- NOTE | 2017-12-30 08:44 | Physician Query-Final Dx ---
ALICIA MORELAND 12/30/17 0844: Clinic Account Progress/Dx Physician Query: Please give diagnosis Date of Service December 24, 2017 at 10:15 ALON BANKS DO 12/31/17 1315: Clinic Account Progress/Dx DIAGNOSIS: Diagnosis 35 week IUP Nausea, cramping, and fever ALICIA MORELAND December 30, 2017 08:44 ALON BANKS DO December 31, 2017 13:15
[2018-01-10] MEDS ORDERED: ACHD5005 PO (07:33)
[2018-01-10] MEDS ORDERED: IBUP-844 PO (07:33)
[2018-01-10] MEDS ORDERED: DOCU100C37 PO (07:33)
== END 2017-12-24 15:15 | disposition home or self-care (01) ==
LOC: LDRP 10:15 → UNDOADMOB 10:15 → LDRP 10:15 → WSo 10:15 → UNDODISOB 15:15 → EDSTATUS 12-27 16:12
PROVIDERS: ATTEND Obstetrics & Gynecology
DX: O99.89 Other specified diseases and conditions complicating pregnancy, childbirth and the puerperium (principal); R11.0 Nausea; R50.9 Fever, unspecified; Z3A.35 35 weeks gestation of pregnancy
CPT/HCPCS: 36415; 80053; 85025; 96361; 96374; 99213

== ENCOUNTER 2018-01-08 11:27 | Inpatient (IN) | payer BC, MEDICAID ==
[~2018-01-08] VITALS: Ht 182.9 cm; Wt 128.8 kg
[~2018-01-08 11:27] MED LIST changes: +ACET325C5 PO
[2018-01-08] MEDS ORDERED: KETAMINE HCL 100 MG/ML 5 ML VIAL ONE (11:50)
[2018-01-08] MEDS ORDERED: fentaNYL INJECTION 100 MCG/2 ML AMP ONE (11:50)
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
[2018-01-08] MEDS ORDERED: BUPIVACAINE SPINAL 0.75% (SENSORCAINE) 2 ML AMP ONE (11:53)
[2018-01-08] MEDS ORDERED: OXYTOCIN/NORMAL SALINE 500 ML IV ONE (11:58)
--- NOTE | 2018-01-08 12:09 | History & Physical-OB ---
OB - Chief Complaint & HPI Date/Time Date of Admission: Date of Admission: January 08, 2018 at 11:27 am Time Seen by Provider: 11:30 Chief Complaint/History OB-Reason for Admission/Chief: Onset of Labor Hx : 2 Hx Para: 1 Expected Date of Delivery: Jan 26, 2018 Gestational Age in Weeks: 37 Gestational Age in Days: 3 Indication for : desires repeat Other reason for admission: Patient sent from the office after having significant amount of cramping and contraction pain as well as severe pelvic pain and sharp pain over previous uterine incision. She also was noted to have a prolonged heart rate deceleration approximately 2-1/2 minutes long subtle decrease down to the 90s with subtle increased back up to baseline Admission Nurse Assessment Rev: Yes History of Labs O neg Antibody neg RI RPR NR HBsAg NR HIV NR GC neg GBS neg Allergies and Home Medications Allergies Coded Allergies: No Known Drug Allergies (Unverified , 05/22/15) Home Medications Pnv95/Ferrous Fumarate/FA 1 Each Tablet, 1 EACH PO DAILY, (Reported) Patient Home Medication List Home Medication List Reviewed: Yes OB - History Hx of Present Care: Yes Ultrasounds: Normal mid trimester US Obstetrical Complications: Other (macrosomia) Medical Complications: None Delivery History Hx Blood Disorders: No Patient Past Medical History none Social History/Family History Sexually Transmitted Disease: No 2nd Hand Smoke Exposure: No Immunizations Tetanus Booster (TDap): Less than 5yrs Date of Influenza Vaccine: May 19, 2017 OB - Admission Exam Physical Exam HEENT: NCAT Heart: Rhythm Normal Lungs: Clear Abdomen: Gravid Extremities: Normal Reflexes: Normal Cervical Dilatation: 1cm Effacement: 75% Station: -1 Membranes: Intact Heart Rate: 130's Accelerations: No Accelerations Decelerations: Variable Decelerations Short Term Variability: Present Shelter Variability: Average (6-25) Contractions on Admission: 6-10 Minutes Apart Intensity: Moderate OB - Assessment/Plan/Diagnosis Assessment Assessment: section Admission Dx 22-year-old at 37 weeks and 3 days' gestation Previous section Previous incisional sharp painconcern for uterine dehiscence Uterine contractions heart rate deceleration Admission Status: Inpatient Order (span 2 midnights) Reason for Inpatient Admission: Repeat Plan Plan: Section ALON BANKS DO January 08, 2018 12:09 pm
[2018-01-08] MEDS ORDERED: ceFAZolin 2 GM IV Premixed 50 ML IV ONE (12:15)
[2018-01-08] MEDS ORDERED: METOCLOPRAMIDE INJ 10 MG/2 ML (REGLAN) ONE (12:18)
[2018-01-08] MEDS ORDERED: raNItidine 50 MG/2 ML INJ (ZANTAC) ONE (12:18)
[2018-01-08] MEDS ORDERED: CITRIC ACID/SOB CIT (BICITRA) 30 ML UDC ONE (12:18)
[2018-01-08 12:32] LABS: BASOPHILS % (AUTO) 0 % (0-10); EOSINOPHILS % (AUTO) 0 % (0-10); HEMATOCRIT 41 % (35-52); LYMPHOCYTES % (AUTO) 24 % (12-44); MEAN CORPUSCULAR HEMOGLOBIN 29 PG (25-34); MEAN CORPUSCULAR HGB CONC 34 G/DL (32-36); MEAN CORPUSCULAR VOLUME 86 FL (80-99); MEAN PLATELET VOLUME 11.1 FL (7.4-10.4); MONOCYTES # (AUTO) 0.9 X 10^3 (0.0-1.0); MONOCYTES % (AUTO) 7 % (0-12); NEUTROPHILS # (AUTO) 8.8 X 10^3 (1.8-7.8); NEUTROPHILS % (AUTO) 69 % (42-75); PLATELET COUNT 233 10^3/uL (130-400); RED BLOOD COUNT 4.84 10^6/uL (4.35-5.85); RED CELL DISTRIBUTION WIDTH 14.1 % (10.0-14.5); WHITE BLOOD COUNT 12.8 10^3/uL (4.3-11.0)
[2018-01-08] MEDS ORDERED: METOCLOPRAMIDE INJ 10 MG/2 ML (REGLAN) IV ONE (12:45)
[2018-01-08] MEDS ORDERED: CITRIC ACID/SOB CIT (BICITRA) 30 ML UDC PO ONE (12:45)
[2018-01-08] MEDS ORDERED: FAMOTIDINE 20MG/2ML IV (PEPCID) IV ONE (12:45)
[2018-01-08] MEDS ORDERED: ONDANSETRON 4 MG/2 ML (SDV) Z0FRAN ONE (13:01)
[2018-01-08] MEDS ORDERED: OXYTOCIN/NORMAL SALINE 500 ML IV SCH (13:05)
[2018-01-08] MEDS ORDERED: HYDROmorphone 1 MG/ML (DILAUDID) 1 ML SYRINGE IV PRN (13:15)
[2018-01-08] MEDS ORDERED: ONDANSETRON 4 MG/2 ML (SDV) Z0FRAN IVP PRN (13:15)
[2018-01-08] MEDS ORDERED: TETANUS,DIPTH,PERTUSS P/F (BOOSTRIX) 0.5 ML VIAL IM SCH (13:15)
[2018-01-08] MEDS ORDERED: MEASLES,MUMPS,RUBELLA 1 EA INJ SC SCH (13:15)
[2018-01-08] MEDS: KETOROLAC 30 MG/ML VIAL IVP SCH ×2 (13:30→19:35)
[2018-01-08] MEDS ORDERED: MIDAZOLAM 2 MG/2 ML (VERSED) VIAL ONE (13:32)
[2018-01-08] MEDS ORDERED: PHENYLEPHRINE 100 MCG/ML 10 ML (ANESTHESIA) SYR ONE (13:47)
[2018-01-08] MEDS ORDERED: CATHETER FLUSH 10 ML SYR IV SCH ×2 (14:00)
[2018-01-08 18:15] VITALS: BP 123/75
[2018-01-08] MEDS: HYDROcodone/APAP 5 MG/325 MG (LORTAB) TAB PO PRN (18:15)
[2018-01-08 19:30] VITALS: BP 116/80
[2018-01-08] MEDS: DOCUSATE SODIUM 100 MG (COLACE) CAP PO SCH (19:35)
--- NOTE | 2018-01-08 23:28 | OPERATIVE REPORT ---
DATE OF SERVICE: 01/08/2018 PREOPERATIVE DIAGNOSES: 1. A 22-year-old G2, P1 at 37 weeks and 3 days gestation. 2. Uterine contractions. 3. heart rate deceleration in the office. 4. Incisional pain. POSTOPERATIVE DIAGNOSES: 1. A 22-year-old G2, P1 at 37 weeks and 3 days gestation. 2. Uterine contractions. 3. heart rate deceleration in the office. 4. Incisional pain. PROCEDURE: Repeat low transverse section. SURGEON: Tirstan Banks DO. ANESTHESIA: Spinal. ESTIMATED BLOOD LOSS: A 700 mL. URINE OUTPUT: A 150 mL clear at the end of the procedure. FLUIDS: A 2200 mL of lactate Ringer solution. FINDINGS: Live male infant weighing 7 pounds 4 ounces, Apgars of 4 and 8. Grossly normal appearing uterus, bilateral fallopian tubes and ovaries. INDICATIONS FOR THE PROCEDURE: A 22-year-old female patient that came into my office acutely today from work with a complaint of severe pain. She was hardly able to walk or ambulate in my office. Upon putting the patient on nonstress testing there were evidence of distress with a heart rate deceleration. This was a broken tracing; however, due to the patient's term status and delivery of a repeat as well as her incisional pain, I discussed with the patient to proceed with delivery. She had been previously counseled about repeat . All of her questions were answered prior and consent was obtained. The patient was taken to the operating room once she was admitted and lab was completed. DESCRIPTION OF PROCEDURE IN DETAIL: Once in the operating room, spinal anesthesia was found to be adequate, placed in a supine position with leftward tilt, prepped and draped in normal sterile fashion. Anesthesia tested. Timeout was performed. A Pfannenstiel skin incision was made through the previously existing scar using a knife and carried down to underlying fascia using Bovie cautery. The fascial incision extended laterally using Bovie cautery. Superior aspect of fascial incision was then grasped with Kyra clamps, tented up and dissected off the underlying rectus muscles. The inferior aspect of the fascial incision was then grasped with Kyra clamps, tented up and dissected off the underlying rectus muscles. The rectus muscle was then dissected down the midline using Metzenbaum scissors, which exposed the peritoneum, which entered bluntly and extended using blunt traction. The Mumtaz ring retractor was placed in the peritoneal incision, which offers excellent lateral sidewall retraction. I then proceeded with making a low transverse incision to the vesicouterine peritoneum and bluntly dissecting that off of the lower uterine segment, creating a bladder flap and then proceeded with my myotomy until the membranes were visualized, at which point I extended the uterine incision laterally and superiorly using bandage scissors. I then performed amniotomy using Allis clamp, clear fluid was noted. The was found in the vertex presentation. There was a compound presentation of the right hand also as well as a nuchal cord. The infant's head is elevated out of the incision, with gentle fundal pressure the infant's head was delivered through the incision where the nuchal cord was reduced x1. Anterior and posterior shoulders were delivered. was then brought to the operative field. The cord was doubly clamped and cut and infant was handed off to waiting tow truck driver in attendance. Cord blood was collected. Three-vessel cord was intact. Placenta was delivered spontaneously thereafter. IV Pitocin was initiated to facilitate uterine contraction. Uterine fundus confirmed with bimanual massage. The uterus was then exteriorized and cleared of all endometrial clots and debris. I then proceeded to close the uterine incision using 0 Vicryl suture in running locked fashion. Second layer of imbricating 0 Monocryl was placed. Excellent hemostasis was noted after doing this. I then placed the uterus back within the pelvis and copiously irrigated the pelvis using normal saline. Once again all of my dissection planes are found to be completely hemostatic. I then placed Interceed antiadhesive over my low transverse incision and then proceeded with closing the peritoneum using 3-0 Vicryl suture in running fashion. The rectus muscle was reapproximated using 3-0 Vicryl suture in interrupted fashion. The fascia was reapproximated using 0 Vicryl suture in running fashion. Subcutaneous tissue was reapproximated using 3-0 plain in an interrupted subcutaneous stitch and skin reapproximated using 4-0 Monocryl in a running subcuticular. Dermabond was applied to the incision. A sterile dressing was adhesed with white tape. The patient tolerated the procedure well and sent to recovery in stable condition. Lap and sponge counts correct at the end of the procedure. Instrument counts correct as well. Ancef 2 grams were given preoperatively for infection prophylaxis. Job ID: [id number] DocumentID: [id number] Dictated Date: 01/08/2018 14:06:43 Pre Algebra Teacher Date: 01/08/2018 22:52:28 Dictated By: TRISTAN BANKS DO
[2018-01-09 02:14] VITALS: BP 91/54
[2018-01-09] MEDS: KETOROLAC 30 MG/ML VIAL IVP SCH ×2 (02:16→11:00)
[2018-01-09 05:32] LABS: BASOPHILS # (AUTO) 0.1 10^3/uL (0.0-0.1); BASOPHILS % (AUTO) 1 % (0-10); EOSINOPHILS # (AUTO) 0.1 10^3/uL (0.0-0.3); EOSINOPHILS % (AUTO) 1 % (0-10); HEMATOCRIT 36 % (35-52); HEMOGLOBIN 12.3 G/DL (11.5-16.0); LYMPHOCYTES # (AUTO) 3.2 X 10^3 (1.0-4.0); LYMPHOCYTES % (AUTO) 28 % (12-44); MEAN CORPUSCULAR HEMOGLOBIN 29 PG (25-34); MEAN CORPUSCULAR HGB CONC 34 G/DL (32-36); MEAN CORPUSCULAR VOLUME 87 FL (80-99); MEAN PLATELET VOLUME 10.9 FL (7.4-10.4); MONOCYTES # (AUTO) 1.3 X 10^3 (0.0-1.0); MONOCYTES % (AUTO) 11 % (0-12); NEUTROPHILS # (AUTO) 6.8 X 10^3 (1.8-7.8); NEUTROPHILS % (AUTO) 60 % (42-75); PLATELET COUNT 187 10^3/uL (130-400); RED BLOOD COUNT 4.18 10^6/uL (4.35-5.85); WHITE BLOOD COUNT 11.3 10^3/uL (4.3-11.0)
[2018-01-09 06:00] VITALS: BP 112/74
[2018-01-09 08:35] VITALS: BP 124/77
[2018-01-09] MEDS ORDERED: IBUPROFEN 600 MG (MOTRIN) TAB PO ONE (08:37)
[2018-01-09] MEDS: DOCUSATE SODIUM 100 MG (COLACE) CAP PO SCH ×2 (09:06→22:35)
[2018-01-09] MEDS: IBUPROFEN 600 MG (MOTRIN) TAB PO SCH ×3 (09:09→22:34)
[2018-01-09 12:11] VITALS: BP 118/69
--- NOTE | 2018-01-09 15:08 | Anesthesia-Regional Post-Op ---
Regional Patient Condition Mental Status: Alert, Oriented x3 Circulation: Same as Pre-Op Headache: Absent Sensation: Full Recovery Motor Block: Absent Post Op Complications Complications None Follow Up Care/Instructions Patient Instructions None needed. Anesthesia/Patient Condition Patient is doing well, no complaints, stable vital signs, no apparent adverse anesthesia problems. TESS GARCIA DO January 09, 2018 15:08
[2018-01-09 16:11] VITALS: BP 113/75
[2018-01-09 22:35] VITALS: BP 102/61
[2018-01-10 04:47] VITALS: BP 116/75
[2018-01-10] MEDS: IBUPROFEN 600 MG (MOTRIN) TAB PO SCH (04:47)
--- NOTE | 2018-01-10 07:29 | Progress Note-Standard ---
Standard Progress Note Progress Notes/Assess & Plan Date Seen by Provider: January 09, 2018 Time Seen by Provider: 12:55 Progress/Assessment & Plan Patient doing well POD 1 RLTCS. Ambulating and voiding freely. Pain well controlled, tolerating regular diet. Vital Sign - Last 24 Hours 01/09/18 01/09/18 01/09/18 01/09/18 08:35 12:11 16:11 22:35 Temp 97.4 97.6 96.6 97.0 Pulse 101 94 83 89 Resp 20 18 20 20 B/P (MAP) 124/77 (93) 118/69 (85) 113/75 (88) 102/61 (75) Pulse Ox 99 100 99 98 O2 Delivery Room Air Room Air Room Air Room Air 01/10/18 04:47 Temp 96.8 Pulse 85 Resp 20 B/P (MAP) 116/75 (89) Pulse Ox 98 O2 Delivery Room Air Intake and Output 01/09/18 01/09/18 01/10/18 15:00 23:00 07:00 Intake Total 900 ml Balance 900 ml Incision: c/d/i Diagnosis: POD 1 RLTCS P: Continue routine PO care Anticipate dc tomorrow ALON BANKS DO January 10, 2018 7:29 am
--- NOTE | 2018-01-10 07:30 | Postpartum Progress Note ---
Note Note Day # 2 Subjective: Patient is without complaints. Ambulating, voiding. Tolerating a regular diet without nausea or vomiting. Normal lochia. Pain is well controlled with oral pain medications. Objective: Vital Sign - Last 24 Hours 01/09/18 01/09/18 01/09/18 01/09/18 08:35 12:11 16:11 22:35 Temp 97.4 97.6 96.6 97.0 Pulse 101 94 83 89 Resp 20 18 20 20 B/P (MAP) 124/77 (93) 118/69 (85) 113/75 (88) 102/61 (75) Pulse Ox 99 100 99 98 O2 Delivery Room Air Room Air Room Air Room Air 01/10/18 04:47 Temp 96.8 Pulse 85 Resp 20 B/P (MAP) 116/75 (89) Pulse Ox 98 O2 Delivery Room Air Intake and Output 01/09/18 01/09/18 01/10/18 15:00 23:00 07:00 Intake Total 900 ml Balance 900 ml Physical Exam: General - Alert and oriented, no apparent distress Abdomen - Soft, appropriately tender to palpation, non-distended, fundus firm at umbilicus Extremities - no edema, negative Nallely's bilaterally Assessment: POD 2 RLTCS Plan: Routine care. Encourage breast feeding. Encourage ambulation. Ferrous sulfate supplementation. Plan for discharge today Vitals - Labs Vital Signs - I&O Vital Signs Date Time Temp Pulse Resp B/P (MAP) Pulse Ox O2 Delivery O2 Flow Rate FiO2 01/10/18 04:47 96.8 85 20 116/75 (89) 98 Room Air 01/09/18 22:35 97.0 89 20 102/61 (75) 98 Room Air 01/09/18 16:11 96.6 83 20 113/75 (88) 99 Room Air 01/09/18 12:11 97.6 94 18 118/69 (85) 100 Room Air 01/09/18 08:35 97.4 101 20 124/77 (93) 99 Room Air I & O 01/10/18 07:00 Intake Total 900 ml Balance 900 ml ALON BANKS DO January 10, 2018 7:30 am
[2018-01-10] MEDS ORDERED: IBUP-844 PO (07:33)
[2018-01-10] MEDS ORDERED: ACHD5005 PO (07:33)
[2018-01-10] MEDS ORDERED: DOCU100C37 PO (07:33)
[2018-01-10 08:50] VITALS: BP 150/85
[2018-01-10] MEDS: HYDROcodone/APAP 5 MG/325 MG (LORTAB) TAB PO PRN (08:50)
[2018-01-10] MEDS: DOCUSATE SODIUM 100 MG (COLACE) CAP PO SCH (08:50)
== END 2018-01-10 09:50 | disposition home or self-care (01) | DRG 766 ==
LOC: LDRP 11:27
PROVIDERS: ADMIT Obstetrics & Gynecology; ATTEND Obstetrics & Gynecology
PROC: 10D00Z1 Extraction of Products of Conception, Low, Open Approach (ICD-10-PCS; principal; 2018-01-08 12:51)
DX: O34.211 Maternal care for low transverse scar from previous cesarean delivery (principal); O76 Abnormality in fetal heart rate and rhythm complicating labor and delivery; O32.6XX0 Maternal care for compound presentation, not applicable or unspecified; O69.81X0 Labor and delivery complicated by cord around neck, without compression, not applicable or unspecified; Z37.0 Single live birth; Z3A.37 37 weeks gestation of pregnancy
CPT/HCPCS: 36415; 85025; 86850; 86900; 86901; 94664

== ENCOUNTER 2018-05-05 13:18 | Emergency (ER) | payer OTHER, BC ==
[~2018-05-05] VITALS: Ht 182.9 cm; Wt 122.5 kg
[~2018-05-05 13:18] MED LIST changes: +IBUP-844 PO; +fentaNYL INJECTION 100 MCG/2 ML AMP ONE
[2018-05-05] MEDS ORDERED: HYDR-4226 PO (13:43)
--- NOTE | 2018-05-05 13:43 | ED Lower Extremity ---
General Stated Complaint: KNEE INJ Source: patient Exam Limitations: no limitations History of Present Illness Date Seen by Provider: May 05, 2018 Time Seen by Provider: 13:39 Initial Comments To ER with reports of a knee injury. She states that her knee has dislocated ( referring to patella) but spontaneously reduces. Last time was 2015. They will standing up from her desk while at work here, it dislocated and could not be reduced. Onset: just prior to arrival Severity: moderate Pain/Injury Location: left knee Modifying Factors: Worse With Movement Allergies and Home Medications Allergies Coded Allergies: No Known Drug Allergies (Unverified , 05/22/15) Home Medications Docusate Sodium 100 Mg Capsule, 100 MG PO BID Prescribed by: ALON BANKS on 01/10/18 0733 Hydrocodone Bit/Acetaminophen 1 Tab Tab, 1-2 TAB PO Q4H PRN for PAIN-MODERATE Prescribed by: ALON BANKS on 01/10/18 0733 Hydrocodone/Acetaminophen 1 Each Tablet, 1 EACH PO Q4H PRN for PAIN-MODERATE Prescribed by: HERI AGUSTIN on 05/05/18 1343 Ibuprofen 600 Mg Tablet, 600 MG PO Q6H Prescribed by: ALON BANKS on 01/10/18 0733 Pnv95/Ferrous Fumarate/FA 1 Each Tablet, 1 EACH PO DAILY, (Reported) Patient Home Medication List Home Medication List Reviewed: Yes Review of Systems Constitutional: see HPI EENTM: see HPI Respiratory: no symptoms reported Cardiovascular: no symptoms reported Genitourinary: no symptoms reported Musculoskeletal: see HPI Skin: no symptoms reported Psychiatric/Neurological: No Symptoms Reported Past [place]-Dhfsnp-Pltsty Hx Patient Social History Type Used: Cigarettes 2nd Hand Smoke Exposure: No Recent Hopitalizations: No Immunizations Up To Date Tetanus Booster (TDap): Less than 5yrs PED Vaccines UTD: Yes Date of Influenza Vaccine: May 19, 2017 Seasonal Allergies Seasonal Allergies: No Past Medical History Surgeries: Yes Section Respiratory: No Cardiac: No Neurological: No Reproductive Disorders: No Female Reproductive Disorders: Denies Sexually Transmitted Disease: No Genitourinary: Yes Kidney Infection, Kidney Stones Gastrointestinal: No Musculoskeletal: No Endocrine: No HEENT: Yes (WEARS GLASSES) Cancer: No Psychosocial: No Integumentary: No Blood Disorders: No Family Medical History Arthritis 19 MOTHER grandparents Cardiovascular disease (FATHER) grandparents Hypertension grandparents Kidney disease 19 FATHER Myocardial infarction grandparents Respiratory disorder grandparents (lung ca) No Pertinent Family Hx Physical Exam Vital Signs Vital Signs - First Documented 05/05/18 13:20 Temp 98.7 Pulse 87 Resp 22 B/P (MAP) 116/63 (80) Pulse Ox 98 O2 Delivery Room Air Capillary Refill : Height, Weight, BMI Height: 6'0.00" Weight: 284lbs. 0.0oz. 128.574966jf; 38.5 BMI Method:Stated General Appearance: WD/WN, no apparent distress HEENT: PERRL/EOMI, normal ENT inspection Neck: non-tender, full range of motion Respiratory: no respiratory distress, no accessory muscle use Hips: bilateral hip non-tender, bilateral hip normal inspection, bilateral hip normal range of motion Legs: bilateral leg non-tender, bilateral leg normal inspection, bilateral leg normal range of motion Knees: left knee pain, left knee soft tissue tenderness, left knee other ( there is a lateral dislocation of the patella, she holds the knee flexed at about 45.) Feet: bilateral foot non-tender, bilateral foot normal inspection, bilateral foot normal range of motion Neurologic/Psychiatric: alert, normal mood/affect, oriented x 3 Skin: normal color, warm/dry Progress/Results/Core Measures Results/Orders My Orders Orders - HERI AGUSTIN APRN Knee, Left, 3 Views (05/05/18 13:38) Fentanyl Injection (Sublimaze Injection (05/05/18 13:45) Ketorolac Injection (Toradol Injection) (05/05/18 14:15) Orphenadrine Injection (Norflex Injectio (05/05/18 14:15) Iv Push Criminal Lawyer Ed (05/05/18 ) Medications Given in ED Vital Signs/I&O 05/05/18 05/05/18 13:20 15:40 Temp 98.7 98.7 Pulse 87 87 Resp 22 22 B/P (MAP) 116/63 (80) 116/63 (80) Pulse Ox 98 98 O2 Delivery Room Air Room Air Progress Progress Note : Progress Note 1330-she was given 50 g of fentanyl IV, the knee was then extended and patella reduced. Diagnostic Imaging Diagonstic Imaging: Xray Comments NAME: SVETLANA ALEJO [facility] REC#: [id number] PT STATUS: REG ER : 1995 PHYSICIAN: HERI AGUSTIN APRN ADMIT DATE: 05/05/18/ER Draft Date of Exam:05/05/18 KNEE, LEFT, 3 VIEWS INDICATION: Left knee popping and pain. TIME OF EXAM: 02:17 p.m. Three views of the left knee demonstrate normal alignment. The joint spaces are well maintained. The articular surfaces are smooth. No fracture, dislocation or effusion is seen. IMPRESSION: No acute bony abnormality is detected. Dictated on workstation # [id number] Dict: 05/05/18 1443 Trans: 05/05/18 1447 [facility] [id number] Interpreted by: ADRIANA PERLA MD Electronically signed by: Departure Communication (Admissions) Immediately after reduction she is able to wiggle her toes and with a strong dorsalis pedis pulse. This was a patellar dislocation not a knee dislocation Impression Primary Impression: Patellar dislocation Disposition: 01 HOME, SELF-CARE Condition: Stable Departure-Patient Inst. Decision time for Depature: 13:41 Referrals: ALON BANKS DO (PCP/Family) Primary Care Physician Patient Instructions: Knee Pain Add. Discharge Instructions: 1. Wear the knee immobilizer for the next 3-4 days except when showering. Pain medication as directed. Follow-up with your primary care provider or orthopedics Scripts Hydrocodone/Acetaminophen (Chambers 5-325 Tablet) 1 Each Tablet 1 EACH PO Q4H PRN for PAIN-MODERATE MDD 10, #10 TAB Prov: HERI AGUSTIN APRN 05/05/18 HERI AGUSTIN APRN May 05, 2018 13:43
[2018-05-05] MEDS ORDERED: fentaNYL INJECTION 100 MCG/2 ML AMP IVP ONE (13:45)
[2018-05-05] MEDS ORDERED: KETOROLAC 30 MG/ML VIAL IVP ONE (14:15)
[2018-05-05] MEDS ORDERED: ORPHENADRINE 60 MG/2 ML (NORFLEX) AMP IV ONE (14:15)
--- NOTE | 2018-05-05 14:47 | Diagnostic Imaging Report ---
INDICATION: Left knee popping and pain. TIME OF EXAM: 02:17 p.m. Three views of the left knee demonstrate normal alignment. The joint spaces are well maintained. The articular surfaces are smooth. No fracture, dislocation or effusion is seen. IMPRESSION: No acute bony abnormality is detected. Dictated by: Dictated on workstation # [id number]
[2018-05-05 15:40] VITALS: BP 116/63
== END 2018-05-05 15:59 | disposition home or self-care (01) ==
LOC: EDUNIT# 13:18 → ER 13:19
DX: S83.005A Unspecified dislocation of left patella, initial encounter (principal); Z82.49 Family history of ischemic heart disease and other diseases of the circulatory system; Z87.442 Personal history of urinary calculi; Z98.890 Other specified postprocedural states; X58.XXXA Exposure to other specified factors, initial encounter; Y92.59 Other trade areas as the place of occurrence of the external cause; Y99.0 Civilian activity done for income or pay
CPT/HCPCS: 73562; 96374; 96375

== ENCOUNTER → 2018-05-17 | Outpatient (CLI) | payer BC, OTHER ==
[~2018-05-17] MED LIST changes: +HYDR-4226 PO; -fentaNYL INJECTION 100 MCG/2 ML AMP ONE
--- NOTE | 2018-05-17 18:31 | Diagnostic Imaging Report ---
EXAMINATION: Magnetic resonance imaging of the left knee without intravenous contrast. DATE: May 17, 2018. COMPARISON: Left knee radiographs, May 05, 2018. INDICATION: 23-year-old female, left knee dislocation. Left knee pain. TECHNIQUE: Multiplanar, multisequence non contrast enhanced MR imaging was accomplished. FINDINGS: MENISCI: There is signal in the body and posterior horn of the medial meniscus which does not definitely contact an articular surface to specifically meet MRI criteria for tear. The lateral meniscus is intact. LIGAMENTS AND TENDONS: The anterior and posterior cruciate ligaments are intact. The medial collateral ligament is intact. The iliotibial band, mid third lateral capsular ligament, fibular collateral ligament, biceps femoris tendon and conjoined tendon are intact. The quadriceps tendon and patella ligament are intact. There is no identified tear of the medial patellofemoral ligament or medial patellar retinaculum. JOINT: There is a full-thickness cartilage signal abnormality involving the lateral patellar facet perhaps best illustrated on sagittal proton density fat saturation sequence image 15. This is not well seen on axial imaging. This potentially could reflect a full-thickness fissure. The articular cartilage is otherwise intact. There is no knee joint effusion, prominent synovitis, or intra-articular body. BONE: There are bone contusions of the medial patella and lateral femoral condyle compatible with recent transient patellar dislocation. The patella is not currently dislocated. The tibial tubercle-trochlear groove distance measures 21 mm. The trochlear depth is visually within normal limits. There is no acute fracture. The additional bone marrow signal is unremarkable. BURSAE AND SOFT TISSUES: There is soft tissue edema adjacent to the sites of bone contusion. There is no Miller's cyst. IMPRESSION: 1. Recent transient patellar dislocation with bone contusions of the medial patella and lateral femoral condyle. No acute fracture. No identified tear of the medial patellofemoral ligament or medial patellar retinaculum. Tibial tubercle-trochlear groove distance measures 21 mm. 2. Suspected full-thickness cartilage fissure at the lateral patellar facet cartilage. No knee joint effusion, intra-articular body, or synovitis 3. Signal in the medial meniscus not meeting MRI criteria for tear. Intact lateral meniscus. 4. Intact anterior and posterior cruciate ligaments. Additional ligaments and tendons are intact. Dictated by: Dictated on workstation # [id number]
== END ==
LOC: RAD 15:11
PROVIDERS: ATTEND Orthopaedic Surgery
DX: S83.015A Lateral dislocation of left patella, initial encounter (principal)
CPT/HCPCS: 73721

== ENCOUNTER 2018-09-06 06:06 | Emergency (ER) | payer BC | END 2018-09-06 09:05 | disposition home or self-care (01) | LOC: ER 06:06 ==

== ENCOUNTER → 2018-10-29 | Outpatient (CLI) | payer BC, OTHER ==
[2018-10-29 07:40] LABS: HEMOGLOBIN 15.4 G/DL (11.5-16.0); MEAN PLATELET VOLUME 11.1 FL (7.4-10.4); RED CELL DISTRIBUTION WIDTH 13.7 % (10.0-14.5)
[2018-10-29 07:58] LABS: ALANINE AMINOTRANSFERASE 12 U/L (0-55); ALBUMIN 4.1 GM/DL (3.2-4.5); ALKALINE PHOSPHATASE 110 U/L (40-136); BILIRUBIN,TOTAL 0.3 MG/DL (0.1-1.0); BUN/CREATININE RATIO 15; CALCIUM 9.6 MG/DL (8.5-10.1); CARBON DIOXIDE 24 MMOL/L (21-32); CHLORIDE 107 MMOL/L (98-107); CHOLESTEROL 207 MG/DL (< 200); CREATININE SERUM 0.85 MG/DL (0.60-1.30); GFR ESTIMATED > 60; GLUCOSE 93 MG/DL (70-105); HDL CHOLESTEROL 49 MG/DL (40-60); POTASSIUM 4.3 MMOL/L (3.6-5.0); SODIUM 140 MMOL/L (135-145); TOTAL PROTEIN 7.2 GM/DL (6.4-8.2); TRIGLYCERIDES 114 MG/DL (<150); VLDL CHOLESTEROL 23 MG/DL (5-40)
== END ==
LOC: LAB 07:22
PROVIDERS: ATTEND Nurse Practitioner Psychiatric/Mental Health
DX: F31.9 Bipolar disorder, unspecified (principal)
CPT/HCPCS: 36415; 80053; 80061; 80178; 84443; 85027

== ENCOUNTER → 2019-02-24 | Outpatient (CLI) | payer BC, OTHER ==
[2019-02-24 08:51] LABS: BASOPHILS # (AUTO) 0.1 10^3/uL (0.0-0.1); BASOPHILS % (AUTO) 1 % (0-10); EOSINOPHILS # (AUTO) 0.1 10^3/uL (0.0-0.3); EOSINOPHILS % (AUTO) 1 % (0-10); HEMATOCRIT 44 % (35-52); HEMOGLOBIN 14.4 G/DL (11.5-16.0); LYMPHOCYTES # (AUTO) 3.1 X 10^3 (1.0-4.0); LYMPHOCYTES % (AUTO) 35 % (12-44); MEAN CORPUSCULAR HEMOGLOBIN 29 PG (25-34); MEAN CORPUSCULAR HGB CONC 33 G/DL (32-36); MEAN CORPUSCULAR VOLUME 89 FL (80-99); MEAN PLATELET VOLUME 10.9 FL (7.4-10.4); MONOCYTES # (AUTO) 0.9 X 10^3 (0.0-1.0); MONOCYTES % (AUTO) 10 % (0-12); NEUTROPHILS # (AUTO) 4.7 X 10^3 (1.8-7.8); NEUTROPHILS % (AUTO) 53 % (42-75); PLATELET COUNT 238 10^3/uL (130-400); RED CELL DISTRIBUTION WIDTH 13.3 % (10.0-14.5); WHITE BLOOD COUNT 8.9 10^3/uL (4.3-11.0)
== END ==
LOC: LAB 07:49
PROVIDERS: ATTEND Obstetrics & Gynecology
DX: N92.5 Other specified irregular menstruation (principal)
CPT/HCPCS: 36415; 84443; 84702; 85025

== ENCOUNTER 2021-03-18 09:07 | Emergency (ER) | payer BC ==
[~2021-03-18] VITALS: Ht 182 cm; Wt 112.0 kg
[~2021-03-18 09:07] MED LIST changes: -ACET325C5 PO; +ACET325C7 PO
[2021-03-18] MEDS ORDERED: ALPR0.5T7 (09:31)
[2021-03-18] MEDS ORDERED: PANT40TA52 (09:31)
[2021-03-18] MEDS ORDERED: METO-333 (09:31)
--- NOTE | 2021-03-18 09:47 | ED General ---
General Chief Complaint: Cardiac/General Problems Stated Complaint: POSS MED REACTION Nursing Triage Note: ARRIVED VIA AMB WITH ASSISSTANCE TO ROOM 03. STATES SHE WAS SEEN YESTERDAY BY DR COLEMAN AND WAS TOLD SHE HAD SVT WITH A HR OF 150'S . WAS PUT ON PANTOPAZOLE AND METOPROLOL. STATES SHE TOOK IT THIS AM AT 0800 AND WITHIN 30 MINS SHE FELT GENERALIZED WEAKNESS AND FEELING OF PASSING OUT. PT HAS HX OF ANXIETY. PT STATES SHE IS HAVING TINGLING IN BILAT HANDS. Source of Information: Patient Exam Limitations: No Limitations History of Present Illness Date Seen by Provider: Mar 18, 2021 Time Seen by Provider: 09:30 Initial Comments Patient is a 26-year-old who presents to the emergency room with a chief complaint of generalized weakness, near syncope, tingling in her hands and feet and legs. She saw her primary care physician on of this last week and was told she was in "SVT", started on metoprolol. She also has a history of panic attacks and he gave her some Xanax 0.5 mg tablets. She states she took both of these together yesterday at 5 PM and had the onset of a very "severe" panic attack that lasted about 2 hours. She states she felt like her heart was pounding out of her chest. Symptoms abated after the 2 hours and when she woke up this morning she took her Ativan at 8 AM as well as another metoprolol. She states she feels very sleepy and weak and lightheaded. She was concerned about taking the medications together or having a bad reaction to either one of them. No recent illnesses. No fevers chills cough congestion. She is not currently having palpitations. She actually states her symptoms seem to be improving. All other review of systems reviewed and negative except as stated above. Timing/Duration: 1-3 Hours Severity: Moderate Associated Systoms: Malaise Allergies and Home Medications Allergies Coded Allergies: No Known Drug Allergies (Unverified , 05/22/15) Patient Home Medication List Home Medication List Reviewed: Yes Review of Systems Review of Systems Constitutional: see HPI, malaise, weakness EENTM: no symptoms reported Respiratory: no symptoms reported Cardiovascular: palpitations Gastrointestinal: no symptoms reported Genitourinary: no symptoms reported Musculoskeletal: no symptoms reported Skin: no symptoms reported Psychiatric/Neurological: Numbness, Paresthesia, Weakness Hematologic/Lymphatic: No Symptoms Reported All Other Systems Reviewed Negative Unless Noted: Yes Past Nhzegiv-Ztiiho-Rftahh Hx Patient Social History Tobacco Use?: No Substance use?: No Alcohol Use?: No Immunizations Up To Date Tetanus Booster (TDap): Less than 5yrs PED Vaccines UTD: Yes Seasonal Allergies Seasonal Allergies: No Past Medical History Surgeries: Yes (DENTAL) Section Respiratory: No Cardiac: No Neurological: Yes Headaches /Migraines Reproductive Disorders: No Female Reproductive Disorders: Denies Sexually Transmitted Disease: No Genitourinary: Yes Kidney Infection, Kidney Stones Gastrointestinal: No Musculoskeletal: No Endocrine: No HEENT: Yes (WEARS GLASSES) Cancer: No Psychosocial: No Integumentary: No Blood Disorders: No Family Medical History Arthritis 19 MOTHER grandparents Cardiovascular disease (FATHER) grandparents Hypertension grandparents Kidney disease 19 FATHER Myocardial infarction grandparents Respiratory disorder grandparents (lung ca) No Pertinent Family Hx Physical Exam Vital Signs Vital Signs - First Documented 03/18/21 09:15 Temp 36.2 Pulse 93 Resp 20 B/P (MAP) 121/88 (99) Pulse Ox 100 O2 Delivery Room Air Capillary Refill : Less Than 3 Seconds Height, Weight, BMI Height: 6'0.00" Weight: 270lbs. 0.0oz. 122.963524py; 33.00 BMI Method:Stated General Appearance: No Apparent Distress, WD/WN, Anxious Eyes: Bilateral Eye Normal Inspection, Bilateral Eye PERRL, Bilateral Eye EOMI HEENT: PERRL/EOMI Respiratory: Lungs Clear, Normal Breath Sounds, No Accessory Muscle Use, No Respiratory Distress Cardiovascular: Regular Rate, Rhythm, Normal Peripheral Pulses Gastrointestinal: Non Tender, Soft Extremity: Normal Inspection Neurologic/Psychiatric: Alert, Oriented x3, No Motor/Sensory Deficits, Normal Mood/Affect Skin: Normal Color, Warm/Dry Progress/Results/Core Measures Suspected Sepsis SIRS Temperature: Pulse: 93 Respiratory Rate: 20 Blood Pressure 121 /88 Mean: 99 Laboratory Tests 03/18/21 09:22: Creatinine 0.96 Results/Orders Lab Results Laboratory Tests Test 03/18/21 09:22 Range/Units Sodium Level 143 135-145 MMOL/L Potassium Level 3.7 3.6-5.0 MMOL/L Chloride Level 106 98-107 MMOL/L Carbon Dioxide Level 22 21-32 MMOL/L Anion Gap 15 H 5-14 MMOL/L Blood Urea Nitrogen 8 7-18 MG/DL Creatinine 0.96 0.60-1.30 MG/DL Estimat Glomerular Filtration Rate 70 BUN/Creatinine Ratio 8 Glucose Level 115 H 70-105 MG/DL Calcium Level 9.8 8.5-10.1 MG/DL My Orders Orders - HAILEY BRIGGS MD Basic Metabolic Panel (03/18/21 10:09) Vital Signs/I&O 03/18/21 09:15 Temp 36.2 Pulse 93 Resp 20 B/P (MAP) 121/88 (99) Pulse Ox 100 O2 Delivery Room Air Capillary Refill : Less Than 3 Seconds Blood Pressure Mean: 99 Progress Note : Time: 10:07 Progress Note I did automobile club travel counselor Marly as far as her medication usage. Recommended that she takes the Xanax on an as-needed basis versus a scheduled basis. I also recommended that she not take the medication together with her metoprolol as those 2 medications could come by and make her feel very sleepy and syncopal. I did do orthostatic vital signs on her, her pulse went from the 60s to the 90s from laying down to standing up. Her blood pressure was rather stable. She has no complaints of illness or recent injury. I do not see much indication for imaging. We will check a BM 7 on her to evaluate electrolytes and renal function. She states she is starting to feel better. All questions are sought and answered. ECG Initial ECG Impression Date: Mar 18, 2021 Initial ECG Impression Time: 09:38 Initial ECG Rate: 70 Initial ECG Rhythm: Normal Sinus Initial ECG Intervals: Normal Initial ECG Impression: Normal Departure Impression Primary Impression: Medication reaction Qualified Codes: T50.905A - Adverse effect of unspecified drugs, medicaments and biological substances, initial encounter Disposition: HOME, SELF-CARE Condition: Stable Departure-Patient Inst. Decision time for Depature: 10:55 Referrals: GERARDO COLEMAN MD (PCP/Family) Primary Care Physician Patient Instructions: MEDICATION REACTION Add. Discharge Instructions: Please take your metoprolol doses 24 hours apart. Take your anxiety medicine, the Xanax, once daily as needed for feelings of panic/anxiety. Follow-up with Dr. Coleman on Saturday. Drink plenty of fluids to stay well-hydrated. Return to the emergency room for any new, concerning or emergent complaints. Copy Copies To 1: GERARDO COLEMAN MD, KATHRYN M MD Mar 18, 2021 09:46
[2021-03-18 10:30] LABS: POTASSIUM 3.7 MMOL/L (3.6-5.0)
[2021-03-18 10:31] LABS: CALCIUM 9.8 MG/DL (8.5-10.1)
[2021-03-18 10:36] LABS: CREATININE SERUM 0.96 MG/DL (0.60-1.30)
[2021-03-18 10:59] VITALS: BP 112/75
[2021-03-19] MEDS ORDERED: LORA-405 SL (04:14)
== END 2021-03-18 10:59 | disposition home or self-care (01) ==
LOC: EDUNIT# 09:07 → ER 09:10
DX: R53.1 Weakness (principal); T44.7X5A Adverse effect of beta-adrenoreceptor antagonists, initial encounter; T42.4X5A Adverse effect of benzodiazepines, initial encounter
CPT/HCPCS: 36415; 80048

== ENCOUNTER 2021-03-19 00:02 | Emergency (ER) | payer BC, OTHER ==
[~2021-03-19] VITALS: Ht 182.9 cm; Wt 112.0 kg
[~2021-03-19 00:02] MED LIST changes: +ALPR0.5T7; +METO-333; +PANT40TA52
[2021-03-19] MEDS ORDERED: LACTATED RINGERS 1,000 ML IV ONE (00:15)
[2021-03-19] MEDS ORDERED: LORazepam INJ 2 MG/ML (ATIVAN) VIAL IVP ONE (00:15)
[2021-03-19] MEDS ORDERED: LORazepam INJ 2 MG/ML (ATIVAN) VIAL ONE (00:17)
--- NOTE | 2021-03-19 00:22 | ED General ---
General Chief Complaint: Psych/Social Disorder Stated Complaint: SHAKING,REACTION TO HEART MEDICATION Source of Information: Patient History of Present Illness Date Seen by Provider: Mar 19, 2021 Time Seen by Provider: 00:05 Initial Comments PT ARRIVES VIA POV FROM HOME PT C/O SHAKING ALL OVER AND CAN'T STOP STATES SHE WAS STARTED ON XANAX, TOPROL AND PANTOPRAZOLE BY DR. GERARDO COLEMAN ON 03/16/21 FOR ANXIETY AND "SVT" PT CLAIMS SHE HAS NEVER HAD ANYTHING LIKE THIS BEFORE--BUT HAS HISTORY OF PANIC ATTACKS PT STATES SHE "HAD A VERY SEVERE PANIC ATTACK" AFTER TAKING HER FIRST DOSE OF THE TOPROL AND XANAX PT CAME TO ER EARLIER TODAY FOR THIS SAME COMPLAINT OF SHAKING ALL OVER AND TINGLING IN HER HANDS AND FEET. PT STATES SHE WENT HOME AND SLEPT ALL DAY, WOKE UP A FEW TIMES AND STARTED SHAKING ALL OVER AND THEN WOULD EAT SOMETHING AND GO BACK TO SLEEP, AND WAKE UP LATER, WITH SHAKING STATES SHE WOULD HAVE SOME CRACKERS AND WATER AND THEN GO BACK TO SLEEP TOOK 1 XANAX 0.5 MG AT 0800, THEN TOOK 1/2 OF A PILL AT 2310 TOOK TOPROL 25 MG AT 0800 THIS AM TOOK PANTOPRAZOL THIS AM--STATES SHE HAS HAD LONGSTANDING PROBLEMS WITH ACID REFLUX. PT STATES SHE IS HERE "BECAUSE I CAN'T GET THE SHAKING TO STOP" STATES SHE DOES NOT FEEL LIKE HER HEART IS RACING OR POUNDING AT THIS TIME NO SHORTNESS OF BREATH, BUT PT IS HYPERVENTILATING ON ARRIVAL NO CHEST PAIN NO HEADACHE DOES C/O EPIGASTRIC PAIN THAT RADIATES TO LEFT FLANK HAS HAD SOME NAUSEA, AND TOOK A ZOFRAN EARLIER. DENIES NAUSEA NOW. NO VOMITING/DIARRHEA/CONSTIPATION NO URINARY SYMPTOMS NO FEVER OR RECENT ILLNESS PT HAS NOT BEEN VACCINATED FOR COVID-19 PT DENIES ANY SICK CONTACTS--LIVES AT HOME WITH AND 3 CHILDREN PT DENIES ANY STRESSORS, BUT STATES JUST GOT A NEW JOB AND SHE JUST GOT A JOB, BUT HAS NOT STARTED IT YET PT STATES SHE HAS BEEN TO [facility] IN THE PAST--LAST TIME WAS IN 2019 STATES "THEY TRIED ME ON 3 DIFFERENT MEDICATIONS AND I ONLY TOOK 1 PILL AND I WOULD HAVE A SEVERE REACTION, SO THEY WOULD TRY ANOTHER ONE AND I WOULD ONLY TAKE ONE PILL AND WOULD HAVE A SEVERE REACTION EVERY TIME" --WAS NOT ON MORE THAN 1 MEDICATION AT A TIME, AND NEVER TOOK MORE THAN 1 PILL OF EACH MEDICATION SHE WAS PRESCRIBED PCP: DR. GERARDO COLEMAN Allergies and Home Medications Allergies Coded Allergies: No Known Drug Allergies (Unverified , 05/22/15) Review of Systems Review of Systems Constitutional: No chills, No diaphoresis, No dizziness, No fever EENTM: no symptoms reported Respiratory: see HPI Cardiovascular: see HPI; No chest pain Gastrointestinal: see HPI, abdominal pain; No constipation, No diarrhea; nausea; No vomiting Genitourinary: no symptoms reported LMP: Mar 18, 2021 ( WITH VASECTOMY) Musculoskeletal: no symptoms reported Skin: no symptoms reported Psychiatric/Neurological: See HPI, Anxiety; Denies Numbness, Denies Paresthesia, Denies Seizure, Denies Tingling; Tremors; Denies Weakness Hematologic/Lymphatic: No Symptoms Reported Immunological/Allergic: no symptoms reported Past Txkvmhj-Cxhsgj-Cglufc Hx Patient Social History Tobacco Use?: Yes (SMOKED 1 PPD, QUIT 2018) Smoking Status: Former Smoker Substance use?: Yes (THC TEEN) Substance type: Marijuana Additional substance use comme: THC TEEN Alcohol Use?: Yes (USED TO DRINK ON REGULAR BASIS, STATES NO ETOH X 1 YEAR) Immunizations Up To Date Tetanus Booster (TDap): Less than 5yrs PED Vaccines UTD: Yes Seasonal Allergies Seasonal Allergies: No Past Medical History Surgery/Hospitalization HX: X 2 DENTAL SURGERY Surgeries: Yes (DENTAL) Section Respiratory: No Cardiac: No Palpitations Neurological: Yes Headaches /Migraines Reproductive Disorders: No Female Reproductive Disorders: Denies Sexually Transmitted Disease: No Genitourinary: Yes Kidney Infection, Kidney Stones Gastrointestinal: Yes Gastroesophageal Reflux Musculoskeletal: Yes (LEFT PATELLAR DISLOCATIONS) Endocrine: No HEENT: Yes (WEARS GLASSES) Cancer: No Psychosocial: Yes (PAINIC ATTACKS) Anxiety, Depression Integumentary: No Blood Disorders: No Family Medical History Arthritis 19 MOTHER grandparents Cardiovascular disease (FATHER) grandparents Hypertension grandparents Kidney disease 19 FATHER Myocardial infarction grandparents Respiratory disorder grandparents (lung ca) No Pertinent Family Hx Physical Exam Vital Signs Vital Signs - First Documented 03/19/21 00:07 Temp 36.5 Pulse 127 Resp 22 B/P (MAP) 104/90 (95) Pulse Ox 100 O2 Delivery Room Air Capillary Refill : Height, Weight, BMI Height: 6'0.00" Weight: 270lbs. 0.0oz. 122.885917gb; 33.00 BMI Method:Stated General Appearance: WD/WN, Obese, Other (PT EXTREMELY ANXIOUS, HYPERVENTILATING, TALKING VERY RAPIDLY, CONSTANT "SHAKING"/TREMULOUSNESS --MOSTLY OF LEGS/FEET, BUT HAS CONSTANT MOVEMENTS OF ENTIRE BODY) HEENT: PERRL/EOMI Neck: Normal Inspection Respiratory: Normal Breath Sounds, No Accessory Muscle Use, No Respiratory Distress, Other (HYPERVENTILATING) Cardiovascular: No Edema, No Gallop, No JVD, No Murmur, Normal Peripheral Pulses, Tachycardia Gastrointestinal: Soft, Tenderness (MILD EPIGASTRIC TENDERNESS) Back: CVA Tenderness (L) Extremity: Normal Capillary Refill, Normal Inspection, Normal Range of Motion, Non Tender, No Calf Tenderness, No Pedal Edema Neurologic/Psychiatric: Alert, Oriented x3, No Motor/Sensory Deficits, shingle cutter II- XII Norm as Tested Skin: Normal Color, Warm/Dry, Tattoos/Piercings (TATTOOS) Progress/Results/Core Measures Suspected Sepsis SIRS Temperature: Pulse: Respiratory Rate: Laboratory Tests 03/19/21 00:14: White Blood Count 16.9H Blood Pressure / Mean: Laboratory Tests 03/19/21 00:14: Creatinine 0.91, Platelet Count 384, Total Bilirubin 0.5 Results/Orders Lab Results Laboratory Tests Test 03/19/21 00:14 03/19/21 02:32 Range/Units White Blood Count 16.9 H 4.3-11.0 10^3/uL Red Blood Count 5.02 3.80-5.11 10^6/uL Hemoglobin 14.0 11.5-16.0 g/dL Hematocrit 43 35-52 % Mean Corpuscular Volume 86 80-99 fL Mean Corpuscular Hemoglobin 28 25-34 pg Mean Corpuscular Hemoglobin Concent 32 32-36 g/dL Red Cell Distribution Width 14.1 10.0-14.5 % Platelet Count 384 130-400 10^3/uL Mean Platelet Volume 11.3 9.0-12.2 fL Immature Granulocyte % (Auto) 0 % Neutrophils (%) (Auto) 64 42-75 % Lymphocytes (%) (Auto) 28 12-44 % Monocytes (%) (Auto) 7 0-12 % Eosinophils (%) (Auto) 0 0-10 % Basophils (%) (Auto) 1 0-10 % Neutrophils # (Auto) 10.9 H 1.8-7.8 X 10^3 Lymphocytes # (Auto) 4.8 H 1.0-4.0 X 10^3 Monocytes # (Auto) 1.1 H 0.0-1.0 X 10^3 Eosinophils # (Auto) 0.1 0.0-0.3 10^3/uL Basophils # (Auto) 0.1 0.0-0.1 10^3/uL Immature Granulocyte # (Auto) 0.1 0.0-0.1 10^3/uL Neutrophils % (Manual) 57 % Lymphocytes % (Manual) 35 % Monocytes % (Manual) 8 % Microcytosis SLIGHT Sodium Level 144 135-145 MMOL/L Potassium Level 3.7 3.6-5.0 MMOL/L Chloride Level 107 98-107 MMOL/L Carbon Dioxide Level 19 L 21-32 MMOL/L Anion Gap 18 H 5-14 MMOL/L Blood Urea Nitrogen 7 7-18 MG/DL Creatinine 0.91 0.60-1.30 MG/DL Estimat Glomerular Filtration Rate 75 BUN/Creatinine Ratio 8 Glucose Level 106 H 70-105 MG/DL Calcium Level 10.0 8.5-10.1 MG/DL Corrected Calcium 8.5-10.1 MG/DL Magnesium Level 2.0 1.6-2.4 MG/DL Total Bilirubin 0.5 0.1-1.0 MG/DL Aspartate Amino Transf (AST/SGOT) 11 5-34 U/L Alanine Aminotransferase (ALT/SGPT) 6 0-55 U/L Alkaline Phosphatase 115 40-136 U/L Troponin I < 0.028 <0.028 NG/ML B-Type Natriuretic Peptide 33.2 <100.0 PG/ML Total Protein 8.2 6.4-8.2 GM/DL Albumin 4.7 H 3.2-4.5 GM/DL Amylase Level 53 25-125 U/L Lipase 14 8-78 U/L TSH Shannon Testing 2.25 0.35-4.94 UIU/ML Serum Test, Qualitative NEGATIVE NEGATIVE Acetaminophen Level < 10 L 10-30 UG/ML Serum Alcohol < 10 <10 MG/DL Urine Color RED H Urine Clarity CLEAR Urine pH 7.0 5-9 Urine Specific [place] <=1.005 1.016-1.022 Urine Protein TRACE H NEGATIVE Urine Glucose (UA) NEGATIVE NEGATIVE Urine Ketones TRACE H NEGATIVE Urine Nitrite NEGATIVE NEGATIVE Urine Bilirubin NEGATIVE NEGATIVE Urine Urobilinogen 0.2 < = 1.0 MG/DL Urine Leukocyte Esterase 1+ H NEGATIVE Urine RBC (Auto) 3+ H NEGATIVE Urine RBC 25-50 H /HPF Urine WBC 0-2 /HPF Urine Crystals NONE /LPF Urine Bacteria TRACE /HPF Urine Casts NONE /LPF Urine Mucus NEGATIVE /LPF Urine Culture Indicated NO Urine Opiates Screen NEGATIVE NEGATIVE Urine Oxycodone Screen NEGATIVE NEGATIVE Urine Methadone Screen NEGATIVE NEGATIVE Urine Propoxyphene Screen NEGATIVE NEGATIVE Urine Barbiturates Screen NEGATIVE NEGATIVE Ur Tricyclic Antidepressants Screen NEGATIVE NEGATIVE Urine Phencyclidine Screen NEGATIVE NEGATIVE Urine Amphetamines Screen NEGATIVE NEGATIVE Urine Methamphetamines Screen NEGATIVE NEGATIVE Urine Benzodiazepines Screen POSITIVE H NEGATIVE Urine Cocaine Screen NEGATIVE NEGATIVE Urine Cannabinoids Screen POSITIVE H NEGATIVE My Orders Orders - KAREN GRESHAM DO Ed Iv/Invasive Line Start (03/19/21 00:12) Ekg Tracing (03/19/21 00:12) Monitor-Rhythm Ecg Trace Only (03/19/21 00:12) Acetaminophen (03/19/21 00:12) Alcohol (03/19/21 00:12) Amylase (03/19/21 00:12) BNP (03/19/21 00:12) Cbc With Automated Diff (03/19/21 00:12) Comprehensive Metabolic Panel (03/19/21 00:12) Drug Screen Stat (Urine) (03/19/21 00:12) Hcg,Qualitative Serum (03/19/21 00:12) Lipase (03/19/21 00:12) Magnesium (03/19/21 00:12) Thyroid Analyzer (03/19/21 00:12) Ua Culture If Indicated (03/19/21 00:12) Troponin I (03/19/21 00:12) Ed Iv/Invasive Line Start (03/19/21 00:12) Lactated Ringers (Lr 1000 Ml Iv Solution (03/19/21 00:15) Lorazepam Injection (Ativan Injection) (03/19/21 00:15) Lorazepam Injection (Ativan Injection) (03/19/21 00:17) Manual Differential (03/19/21 00:14) Ondansetron Injection (Zofran Injectio (03/19/21 01:15) Pantoprazole Injection (Protonix Injecti (03/19/21 01:15) Ct Abd/Pelvis Wo(Kidney Stone) (03/19/21 02:32) Medications Given in ED Current Medications Medications Dose Ordered Sig/Abdirizak Route Start Time Stop Time Status Last Admin Dose Admin Lactated Ringer's 1,000 ml @ 0 mls/hr Q0M ONCE IV 03/19/21 00:15 03/19/21 00:16 DC 03/19/21 00:20 999 MLS/HR Lorazepam 1 mg ONCE ONCE IVP 03/19/21 00:15 03/19/21 00:16 DC 03/19/21 00:20 1 MG Ondansetron HCl 8 mg ONCE ONCE IVP 03/19/21 01:15 03/19/21 01:16 DC 03/19/21 01:14 8 MG Pantoprazole 40 mg ONCE ONCE IV 03/19/21 01:15 03/19/21 01:16 DC 03/19/21 01:14 40 MG Vital Signs/I&O 03/19/21 00:07 Temp 36.5 Pulse 127 Resp 22 B/P (MAP) 104/90 (95) Pulse Ox 100 O2 Delivery Room Air Capillary Refill : Progress Note : Progress Note GIVEN IV FLUIDS, ATIVAN FAIRLY QUICK RESPONSE WITH ATIVAN--HR DOWN TO 80'S, BP 120'S/70'S, AND PT NO LONGER SHAKING OR HYPERVENTILATING, AND PT APPEARS CALMER. 0100--NOW C/O NAUSEA--GIVEN ZOFRAN AND PROTONIX 0115--NOW WANTING WATER, BECAUSE HER ANXIETY IS COMING BACK AND STATES IF SHE SIPS ON WATER "IT CALMS HER DOWN AND HELPS HER ANXIETY". ADVISED NPO STATUS AT THIS TIME BECAUSE OF PREVIOUS COMPLAINT OF ABDOMINAL PAIN AND NAUSEA, AND LAB IS PENDING AT THIS TIME. PT SLEPT FOR MOST OF ER STAY ECG Initial ECG Impression Date: Mar 19, 2021 Initial ECG Impression Time: 00:49 Initial ECG Rate: 76 Initial ECG Rhythm: Normal Sinus Departure Impression Primary Impression: Anxiety Additional Impressions: Hyperventilation Marijuana use Disposition: HOME, SELF-CARE Condition: Improved Departure-Patient Inst. Referrals: GERARDO COLEMAN MD (PCP/Family) Primary Care Physician Patient Instructions: Anxiety, Adult (DC), Hyperventilation, Marijuana Use and Addiction (DC) Add. Discharge Instructions: NO MARIJUANA!! CONTINUE METOPROLOL PRESCRIBED HOLD XANAX, WILL REPLACE IT WITH ATIVAN TO TAKE NEEDED FOR ANXIETY FOLLOW UP WITH DR. COLEMAN IN 1-2 DAYS FOR FURTHER CARE All discharge instructions reviewed with patient and/or family. Voiced understanding. Scripts Lorazepam (Ativan) 1 Mg Tablet 1 MG SL TID PRN for ANXIETY, #10 TAB Prov: KAREN GRESHAM DO 03/19/21 KAREN GRESHAM DO Mar 19, 2021 00:21
[2021-03-19 00:58] LABS: BASOPHILS # (AUTO) 0.1 10^3/uL (0.0-0.1); BASOPHILS % (AUTO) 1 % (0-10); EOSINOPHILS # (AUTO) 0.1 10^3/uL (0.0-0.3); EOSINOPHILS % (AUTO) 0 % (0-10); HEMATOCRIT 43 % (35-52); LYMPHOCYTES # (AUTO) 4.8 X 10^3 (1.0-4.0); LYMPHOCYTES % (AUTO) 28 % (12-44); MEAN CORPUSCULAR HEMOGLOBIN 28 pg (25-34); MEAN CORPUSCULAR HGB CONC 32 g/dL (32-36); MEAN CORPUSCULAR VOLUME 86 fL (80-99); MEAN PLATELET VOLUME 11.3 fL (9.0-12.2); MONOCYTES # (AUTO) 1.1 X 10^3 (0.0-1.0); MONOCYTES % (AUTO) 7 % (0-12); NEUTROPHILS # (AUTO) 10.9 X 10^3 (1.8-7.8); NEUTROPHILS % (AUTO) 64 % (42-75); PLATELET COUNT 384 10^3/uL (130-400); WHITE BLOOD COUNT 16.9 10^3/uL (4.3-11.0)
[2021-03-19] MEDS ORDERED: ONDANSETRON 4 MG/2 ML (SDV) Z0FRAN IVP ONE (01:15)
[2021-03-19] MEDS ORDERED: PANTOPRAZOLE 40 MG (PROTONIX) VIAL IV ONE (01:15)
[2021-03-19 01:38] LABS: LYMPHOCYTES % (MANUAL) 35 %; MONOCYTES % (MANUAL) 8 %; NEUTROPHILS % (MANUAL) 57 %
[2021-03-19 01:39] LABS: MICROCYTOSIS SLIGHT
[2021-03-19 01:53] LABS: CARBON DIOXIDE 19 MMOL/L (21-32); CHLORIDE 107 MMOL/L (98-107); POTASSIUM 3.7 MMOL/L (3.6-5.0); SODIUM 144 MMOL/L (135-145)
[2021-03-19 01:54] LABS: ALANINE AMINOTRANSFERASE 6 U/L (0-55); ALBUMIN 4.7 GM/DL (3.2-4.5); ALKALINE PHOSPHATASE 115 U/L (40-136); BILIRUBIN,TOTAL 0.5 MG/DL (0.1-1.0); BUN/CREATININE RATIO 8; CREATININE SERUM 0.91 MG/DL (0.60-1.30); GFR ESTIMATED 75; GLUCOSE 106 MG/DL (70-105); TOTAL PROTEIN 8.2 GM/DL (6.4-8.2)
[2021-03-19 01:55] LABS: ACETAMINOPHEN < 10 UG/ML (10-30); AMYLASE 53 U/L (25-125); LIPASE 14 U/L (8-78)
[2021-03-19 02:28] LABS: TSH (THYROID ANALYZER) 2.25 UIU/ML (0.35-4.94)
[2021-03-19 02:55] LABS: AMPHETAMINE SCREEN, URINE NEGATIVE (NEGATIVE); BARBITURATE SCREEN URINE NEGATIVE (NEGATIVE); BENZODIAZEPINES SCREEN URINE POSITIVE (NEGATIVE); CANNABINOID SCREEN, URINE POSITIVE (NEGATIVE); COCAINE SCREEN URINE NEGATIVE (NEGATIVE); METHADONE STAT NEGATIVE (NEGATIVE); METHAMPHETAMINE SCREEN URINE S NEGATIVE (NEGATIVE); OPIATE SCREEN URINE NEGATIVE (NEGATIVE); OXYCODONE STAT NEGATIVE (NEGATIVE); PROPOXYPHENE STAT NEGATIVE (NEGATIVE); TRICYCLIC ANTIDEPRESSANTS SCRE NEGATIVE (NEGATIVE)
[2021-03-19 03:45] LABS: CLARITY,URINE CLEAR; COLOR,URINE RED; GLUCOSE, URINE (UA) NEGATIVE (NEGATIVE); PROTEIN,URINE TRACE (NEGATIVE)
[2021-03-19 03:46] LABS: BILIRUBIN,URINE NEGATIVE (NEGATIVE); KETONES,URINE TRACE (NEGATIVE); LEUKOCYTE ESTERASE ,URINE 1+ (NEGATIVE); NITRITE,URINE NEGATIVE (NEGATIVE); RBC,URINE 25-50 /HPF
[2021-03-19 03:47] LABS: BACTERIA,URINE TRACE /HPF; WBC,URINE 0-2 /HPF
[2021-03-19] MEDS ORDERED: LORA-405 SL (04:14)
[2021-03-19 04:43] VITALS: BP 114/67
--- NOTE | 2021-03-19 06:17 | Diagnostic Imaging Report ---
EXAMINATION: CT abdomen and pelvis without contrast. TECHNIQUE: Multiple contiguous axial images were obtained through the abdomen and pelvis without the use of intravenous contrast. All CT scans use one or more of the following dose optimizing techniques: automated exposure control, MA and/or KvP adjustment based on patient size and exam type or iterative reconstruction. HISTORY: Flank pain COMPARISON: 09/06/2018 FINDINGS: Limited views of the lower thorax are unremarkable. The liver is normal without focal lesion. There is no biliary ductal dilation. Gallbladder is normal. Pancreas is normal. Spleen is normal. Adrenal glands are normal. There are tiny bilateral nonobstructing renal stones measuring 1 mm and smaller. There are few phleboliths in the pelvis. No obstructing ureteral stones. There is no hydronephrosis. Urinary bladder is normal. Uterus and ovaries are normal for age. Visualized bowel is normal in caliber without obstruction or inflammation. No free fluid or air. No abdominal or pelvic lymphadenopathy. Aorta is normal in caliber without aneurysm. There are no suspicious osseus lesions. IMPRESSION: 1. Nonobstructing renal stones, no ureteral stones. There is no significant disagreement with the preliminary report. Dictated by: Dictated on workstation # [id number]
== END 2021-03-19 04:20 | disposition home or self-care (01) ==
LOC: EDUNIT# 00:02 → ER 00:04
DX: F41.9 Anxiety disorder, unspecified (principal); R06.4 Hyperventilation; F12.90 Cannabis use, unspecified, uncomplicated; E66.9 Obesity, unspecified; K21.9 Gastro-esophageal reflux disease without esophagitis; Z68.33 Body mass index [BMI] 33.0-33.9, adult; Z87.891 Personal history of nicotine dependence
CPT/HCPCS: 74176; 80053; 80306; 81000; 82150; 83690; 83735; 83880; 84443; 84484; 84703; 85007; 85027; 93005; 93041; 99284; G0480 ×2; 36415; 80320; 80329

== ENCOUNTER → 2021-03-22 | Outpatient (CLI) | payer BC, OTHER ==
[~2021-03-22] MED LIST changes: +LORA-405 SL
== END ==
LOC: CARD 09:00
PROVIDERS: ATTEND Internal Medicine Cardiovascular Disease
DX: I51.7 Cardiomegaly (principal)
CPT/HCPCS: 93306

== ENCOUNTER 2021-03-30 19:32 | Emergency (ER) | payer BC ==
[~2021-03-30] VITALS: Ht 182 cm; Wt 117.0 kg
--- NOTE | 2021-03-30 21:11 | ED General ---
General Stated Complaint: COUGH/ZHAO/LOSS OF SMELL Source of Information: Patient Exam Limitations: No Limitations History of Present Illness Date Seen by Provider: Mar 30, 2021 Time Seen by Provider: 21:10 Initial Comments Covid symptoms started yesterday. Child is also sick. Complains of cough. Timing/Duration: 1-2 Days Severity: Moderate Associated Systoms: Cough, Headaches Allergies and Home Medications Allergies Coded Allergies: No Known Drug Allergies (Unverified , 05/22/15) Home Medications Lorazepam 1 Mg Tablet, 1 MG SL TID PRN for ANXIETY Prescribed by: KAREN GRESHAM on 03/19/21 0414 Patient Home Medication List Home Medication List Reviewed: Yes Review of Systems Review of Systems Constitutional: see HPI EENTM: see HPI Respiratory: see HPI, cough Cardiovascular: no symptoms reported Genitourinary: no symptoms reported Musculoskeletal: no symptoms reported Skin: no symptoms reported Psychiatric/Neurological: No Symptoms Reported Hematologic/Lymphatic: No Symptoms Reported Past Whosjia-Uhenin-Tbzrft Hx Immunizations Up To Date Tetanus Booster (TDap): Less than 5yrs PED Vaccines UTD: Yes Seasonal Allergies Seasonal Allergies: No Past Medical History Surgery/Hospitalization HX: X 2 DENTAL SURGERY Surgeries: Yes (DENTAL) Section Respiratory: No Cardiac: No Palpitations Neurological: Yes Headaches /Migraines Reproductive Disorders: No Female Reproductive Disorders: Denies Sexually Transmitted Disease: No Genitourinary: Yes Kidney Infection, Kidney Stones Gastrointestinal: Yes Gastroesophageal Reflux Musculoskeletal: Yes (LEFT PATELLAR DISLOCATIONS) Endocrine: No HEENT: Yes (WEARS GLASSES) Cancer: No Psychosocial: Yes (PAINIC ATTACKS) Anxiety, Depression Integumentary: No Blood Disorders: No Family Medical History Arthritis 19 MOTHER grandparents Cardiovascular disease (FATHER) grandparents Hypertension grandparents Kidney disease 19 FATHER Myocardial infarction grandparents Respiratory disorder grandparents (lung ca) No Pertinent Family Hx Physical Exam Vital Signs Vital Signs - First Documented 03/30/21 21:28 Temp 36.9 Pulse 95 Resp 20 B/P (MAP) 131/81 (98) Pulse Ox 99 O2 Delivery Room Air Capillary Refill : Height, Weight, BMI Height: 6'0.00" Weight: 270lbs. 0.0oz. 122.806188gf; 33.00 BMI Method:Stated General Appearance: No Apparent Distress, WD/WN Eyes: Bilateral Eye Normal Inspection, Bilateral Eye PERRL, Bilateral Eye EOMI HEENT: PERRL/EOMI, TMs Normal Neck: Full Range of Motion, Normal Inspection Respiratory: Normal Breath Sounds, No Accessory Muscle Use, No Respiratory Distress Cardiovascular: Regular Rate, Rhythm, Normal Peripheral Pulses Gastrointestinal: Normal Bowel Sounds, Non Tender, Soft Extremity: Normal Capillary Refill, Normal Inspection Neurologic/Psychiatric: Alert, Oriented x3 Skin: Normal Color, Warm/Dry Progress/Results/Core Measures Suspected Sepsis SIRS Temperature: Pulse: Respiratory Rate: Blood Pressure / Mean: Results/Orders Lab Results Laboratory Tests Test 03/30/21 20:05 Range/Units Influenza Type A (RT-PCR) Not Detected Not Detecte Influenza Type B (RT-PCR) Not Detected Not Detecte SARS-CoV-2 RNA (RT-PCR) Detected H Not Detecte My Orders Orders - HERI AGUSTIN APRN Covid 19 Inhouse Test (03/30/21 20:03) Influenza A And B By Pcr (03/30/21 20:03) Vital Signs/I&O 03/30/21 21:28 Temp 36.9 Pulse 95 Resp 20 B/P (MAP) 131/81 (98) Pulse Ox 99 O2 Delivery Room Air Capillary Refill : Departure Communication (Admissions) With her the emergency use authorization of Regeneron and she would like to proceed with getting this. Impression Primary Impression: COVID-19 Disposition: 01 HOME, SELF-CARE Condition: Stable Departure-Patient Inst. Decision time for Depature: 21:11 Referrals: GERARDO COLEMAN MD (PCP/Family) Primary Care Physician Patient Instructions: COVID-19 Overview, REGEN-COV (casirivimab and imdevimab) FDA Fact Sheet Scripts Acetaminophen with Codeine (Acetaminophen-Cod #3 Tablet) 1 Each Tablet 1 EACH PO Q4H PRN for COUGH for 7 Days, #14 TAB Prov: HERI AGUSTIN APRN 03/30/21 Work/School Note: Work Release Form Date Seen in the Emergency Department: Mar 30, 2021 Return to Work: Apr 10, 2021 HERI AGUSTIN APRN Mar 30, 2021 21:11
[2021-03-30] MEDS ORDERED: ACET1TAB43 PO (21:47)
[2021-03-30] MEDS ORDERED: RX-ACETAMINOPHEN/CODEINE TAB PPK #4 PO SCH (22:00)
[2021-03-30 22:06] VITALS: BP 131/81
== END 2021-03-30 22:06 | disposition home or self-care (01) ==
LOC: EDUNIT# 19:32 → ER 19:33
DX: U07.1 COVID-19 (principal); F41.9 Anxiety disorder, unspecified; Z79.899 Other long term (current) drug therapy
CPT/HCPCS: 87636; 99281

== ENCOUNTER 2021-04-03 11:49 | Outpatient (CLI) | payer BC ==
[~2021-04-03 11:49] MED LIST changes: +ACET1TAB43 PO; +EPINEPHrine INJECTION 1 MG/ML AMP IM PRN; +diphenhydrAMINE 50 MG/ML INJ (BENADRYL) IV PRN
[2021-04-03 11:59] VITALS: BP 123/78
[2021-04-03] MEDS ORDERED: CASIRIVIMAB/IMDEVIMAB 1,200 MG in NS (IVPB) 250 ML IV ONE (12:00)
[2021-04-03] MEDS ORDERED: ONDANSETRON 4 MG/2 ML (SDV) Z0FRAN IV PRN (12:00)
[2021-04-03] MEDS ORDERED: ACETAMINOPHEN 500 MG TAB (TYLENOL) PO PRN (12:00)
[2021-04-03 12:58] VITALS: BP 115/73
[2021-04-03 13:42] VITALS: BP 111/72
== END 2021-04-03 13:45 | disposition home or self-care (01) ==
LOC: INFUSION 11:49
PROVIDERS: ATTEND Nurse Practitioner Family
DX: Z23 Encounter for immunization (principal); U07.1 COVID-19

== ENCOUNTER → 2021-09-06 | Outpatient (CLI) | payer BC, OTHER ==
[~2021-09-06] MED LIST changes: +CATHETER FLUSH 10 ML SYR IV PRN; -EPINEPHrine INJECTION 1 MG/ML AMP IM PRN; +HOLD METFORMIN - RECEIVED CONTRAST 20 ML VIAL IV SCH; +IOHEXOL 350 MG/ML 100 ML (OMNIPAQUE 350) VIAL IV ONE; +NS 100 ML (IVPB) BAG IV ONE; -diphenhydrAMINE 50 MG/ML INJ (BENADRYL) IV PRN
--- NOTE | 2021-09-06 11:51 | Diagnostic Imaging Report ---
PROCEDURE: CT head with and without contrast. TECHNIQUE: Multiple contiguous axial images were obtained through the brain before and after the administration of intravenous contrast. Auto Exposure Controls were utilized during the CT exam to meet ALARA standards for radiation dose reduction. INDICATION: Headache. COMPARISON: CT head without contrast 09/10/2016. FINDINGS: No intracranial hemorrhage, mass effect, hydrocephalus, or extra-axial fluid collections. No CT evidence for territorial infarction. No abnormal intracranial enhancement. Osseous structures are intact. Visualized paranasal sinuses and mastoids are clear. IMPRESSION: Negative head CT. No abnormal intracranial enhancement. Dictated by: Dictated on workstation # [id number]
== END ==
LOC: RAD 10:45
PROVIDERS: ATTEND Family Medicine
DX: R51.9 Headache, unspecified (principal); H53.9 Unspecified visual disturbance; F41.1 Generalized anxiety disorder; R45.0 Nervousness; E55.9 Vitamin D deficiency, unspecified
CPT/HCPCS: 70470